=== PATIENT | male | born 1990 | race American Indian/Alaskan Native ===

== ENCOUNTER 2018-01-12 22:46 | Emergency (ER) | payer SELFPAY ==
[2018-01-12] MEDS ORDERED: ZOFRAN ODT ONE (23:18)
[2018-01-12] MEDS ORDERED: ZOFRAN ODT PO ONE (23:39)
[2018-01-12 23:46] LABS: Basophils # (Auto) 0.1 K/mm3 (0.0-0.1); Basophils % (Auto) 0.4 % (0.0-1.8); Eosinophils % (Auto) 0.2 % (0.0-4.3); Hematocrit 48.1 % (35.5-45.6); Hemoglobin 15.6 gm/dl (11.8-15.2); Lymphocytes # (Auto) 2.3 K/mm3 (1.2-5.4); Lymphocytes % (Auto) 14.5 % (13.4-35.0); Mean Corpuscular HGB Conc 32 % (32-34); Mean Corpuscular Hemoglobin 29 pg (28-32); Mean Corpuscular Volume 90 fl (84-94); Platelet Count 207 K/mm3 (140-440); Red Blood Count 5.37 M/mm3 (3.65-5.03); Red Cell Distribution Width 13.1 % (13.2-15.2)
[2018-01-13] LABS: Alanine Aminotransferase 11 units/L (7-56); BUN/Creatinine Ratio 11; Blood Urea Nitrogen 12 mg/dL (9-20); Calcium 9.5 mg/dL (8.4-10.2); Hemolysis Index 14
[2018-01-13] MEDS ORDERED: ZOFRAN ODT ONE (02:18)
[2018-01-13] MEDS ORDERED: ZOFRAN ODT PO ONE ×2 (02:44→07:14)
[2018-01-13] MEDS ORDERED: NACL 0.9% 1000 ML 1,000 ML IV ONE ×2 (03:22→07:14)
[2018-01-13] MEDS ORDERED: REGLAN IV ONE (03:22)
[2018-01-13 04:27] VITALS: BP 146/70
--- NOTE | 2018-01-13 04:33 | XRay Report ---
FINAL REPORT EXAM: XR ABDOMEN 2V HISTORY: abd pain TECHNIQUE: Two views of the abdomen were submitted. FINDINGS: The bowel gas pattern is unremarkable. Free air is not seen. There is no evidence of mass effect or suspicious calcifications. The lung bases are clear. The skeletal structures do not show any acute changes. IMPRESSION: No acute process identified
[2018-01-13 06:03] LABS: Bilirubin,Urine NEG (Negative); Blood,Urine NEG (Negative); Color,Urine Yellow (Yellow); Mucus,Urine FEW /HPF; Protein,Urine <15 mg/dL mg/dL (Negative); Urobilinogen,Urine < 2.0 mg/dL (<2.0)
--- NOTE | 2018-01-13 06:14 | Emergency Department Report ---
ED Abdominal Pain HPI - General Chief Complaint: Abdominal Pain Stated Complaint: ABD PAIN Time Seen by Provider: 01/13/18 06:12 Source: patient Mode of arrival: Ambulatory Limitations: No Limitations - History of Present Illness Initial Comments: Patient complains of a several hour history of epigastric discomfort, along with nausea and vomiting. MD Complaint: abdominal pain Severity scale (0 -10): 0 - Related Data Previous Rx's Medication Instructions Recorded Last Taken Type Dicyclomine [Bentyl] 10 mg PO QID PRN #15 capsule 01/13/18 Unknown Rx HYDROcodone/ACETAMINOPHEN [[place] 1 each PO Q4-6H PRN #12 tablet 01/13/18 Unknown Rx 5-325 Tablet] Ondansetron [Zofran ODT TAB] 8 mg PO Q8HR PRN #10 tab.rapdis 01/13/18 Unknown Rx Allergies Allergy/AdvReac Type Severity Reaction Status Date / Time No Known Allergies Allergy Verified 01/12/18 23:36 ED Review of Systems ROS: Stated complaint: ABD PAIN Other details as noted in HPI Comment: All other systems reviewed and negative Constitutional: denies: chills, diaphoresis, fever Eyes: denies: eye pain, eye discharge, vision change ENT: denies: ear pain, throat pain Respiratory: denies: cough, shortness of breath, wheezing Cardiovascular: denies: chest pain, palpitations Endocrine: no symptoms reported Gastrointestinal: abdominal pain, nausea, vomiting. denies: diarrhea, hematemesis, melena, hematochezia Genitourinary: denies: urgency, dysuria Musculoskeletal: denies: back pain, joint swelling, arthralgia Skin: denies: rash, lesions Neurological: denies: headache, weakness, paresthesias Psychiatric: denies: anxiety, depression ED Past Medical Hx - Past Medical History Previous Medical History?: No - Surgical History Past Surgical History?: Yes Additional Surgical History: tonsilectomy - Social History Smoking Status: Current Every Day Smoker Substance Use Type: Alcohol - Medications Home Medications: Home Medications Medication Instructions Recorded Confirmed Last Taken Type Dicyclomine [Bentyl] 10 mg PO QID PRN #15 capsule 01/13/18 Unknown Rx HYDROcodone/ACETAMINOPHEN [[place] 1 each PO Q4-6H PRN #12 tablet 01/13/18 Unknown Rx 5-325 Tablet] Ondansetron [Zofran ODT TAB] 8 mg PO Q8HR PRN #10 tab.rapdis 01/13/18 Unknown Rx ED Physical Exam - General Limitations: No Limitations General appearance: alert, in distress (secondary to abdominal cramping intermittently) - Head Head exam: Present: atraumatic, normocephalic - Eye Eye exam: Present: normal appearance - ENT ENT exam: Present: mucous membranes moist - Neck Neck exam: Present: normal inspection - Respiratory Respiratory exam: Present: normal lung sounds bilaterally. Absent: respiratory distress - Cardiovascular Cardiovascular Exam: Present: regular rate, normal rhythm. Absent: systolic murmur, diastolic murmur, rubs, gallop - GI/Abdominal GI/Abdominal exam: Present: soft, tenderness (primarily in the epigastrium, but lesser extent across lower abdomen, no rebound or guarding), hyperactive bowel sounds. Absent: rebound, rigid - Rectal Rectal exam: Present: deferred - Extremities Exam Extremities exam: Present: normal inspection - Back Exam Back exam: Present: normal inspection - Neurological Exam Neurological exam: Present: alert, oriented X3 - Psychiatric Psychiatric exam: Present: normal affect, normal mood - Skin Skin exam: Present: warm, dry, intact, normal color. Absent: rash ED Course Vital Signs 01/12/18 01/13/18 01/13/18 23:06 04:17 04:24 Temperature 36.4 C 36.9 C Pulse Rate 55 L 51 L Respiratory 18 16 Rate Blood Pressure 126/96 Blood Pressure 146/70 [Right] O2 Sat by Pulse 97 96 96 Oximetry 01/13/18 01/13/18 04:31 05:01 Temperature Pulse Rate Respiratory Rate Blood Pressure 146/70 146/70 Blood Pressure [Right] O2 Sat by Pulse 99 96 Oximetry - Reevaluation(s) Reevaluation #1: 01/13/18 09:17 Patient improved with rehydration as well as medication for nausea and pain. Wishes to go home, will treat symptomatically as same. ED Medical Decision Making - Lab Data Result diagrams: 01/12/18 23:38 01/12/18 23:38 - Radiology Data Radiology results: report reviewed Abdominal x-rays are unremarkable, with no findings suggestive of acute obstruction, no free air. Right upper quadrant limited abdominal ultrasound shows normal gallbladder and no other significant pathology. - Medical Decision Making Patient is generally healthy, has typical findings suggestive of an acute gastroenteritis, with epigastric component. He is improved with medication with analgesics and antiemetics, and repeat examination of his belly is essentially benign, with minimal tenderness generally to palpation, but no localization, and the right lower quadrant is in fact one of the least tender areas that is got. There is no rebound, no guarding, bowel sounds are active. White count is moderately elevated, but imaging is negative with normal right upper quadrant ultrasound and negative plain abdominal films, and patient is otherwise stable clinically, wishes to go home, and will be treated, given instructions for repeat examination if he has worsening pain, particularly if it localizes towards the right lower quadrant. - Differential Diagnosis acute gastroenteritis, gastritis, pancreatitis, appendicitis Critical Care Time: No Critical care attestation.: If time is entered above; I have spent that time in minutes in the direct care of this critically ill patient, excluding procedure time. ED Disposition Clinical Impression: Gastroenteritis, Nausea and vomiting in adult patient, Dehydration, moderate, Abdominal pain Disposition: TO HOME OR SELFCARE Is pt being admited?: No Does the pt Need Aspirin: No Condition: Stable Instructions: Acute Abdominal Pain (ED), Dehydration (ED) Additional Instructions: Rest at home, drink plenty of electrolyte rich fluids such as Pedialyte, sports drinks such as G-tube Gatorade, or soups or broths. Take Dorsey for pain Take ondansetron for nausea. Take Bentyl for abdominal cramping. No work for the next 2-3 days, Be improving within one or 2 days, but should be able to start taking solid foods after that. If abdominal pain worsens, and particularly if it moves towards the lower abdomen on the right side, return to the emergency department for repeat examination, as we would be more worried about appendicitis at that time. Prescriptions: Dicyclomine [Bentyl] 10 mg PO QID PRN #15 capsule PRN Reason: cramping HYDROcodone/ACETAMINOPHEN [[place] 5-325 Tablet] 1 each PO Q4-6H PRN #12 tablet PRN Reason: Pain Ondansetron [Zofran ODT TAB] 8 mg PO Q8HR PRN #10 tab.rapdis PRN Reason: Nausea Referrals: PRIMARY CARE, [Primary Care Provider] - 3-5 Days Forms: Work/School Release Form(ED) Time of Disposition: 09:27
--- NOTE | 2018-01-13 06:20 | Ultrasound Report ---
FINAL REPORT PROCEDURE: US ABDOMEN LIMITED TECHNIQUE: Real-time sonography in multiple planes of the gallbladder fossa and CBD with imaging of the adjacent liver, pancreas, and right kidney was performed with image documentation. CPT 62062 HISTORY: upper abd pain, N/V COMPARISON: No prior studies are available for comparison. FINDINGS: Liver: Normal size and echotexture with no evidence of cystic or solid mass lesion. Gallbladder: No discrete gallstones are seen. Gallbladder wall measures 2.2 millimeters. There is no pericholecystic fluid.. Intrahepatic bile ducts: Normal . Extrahepatic bile ducts: Normal . Pancreas: Normal as visualized with suboptimal depiction of the pancreatic tail. Right kidney: Normal echotexture. No focal renal mass, calculus, or hydronephrosis. Other: No free fluid. IMPRESSION: Normal Examination
[2018-01-13] MEDS ORDERED: MORPHINE IV ONE (07:14)
== END 2018-01-13 10:47 | disposition home or self-care (01) ==
LOC: ED 22:46
DX: K52.9 Noninfective gastroenteritis and colitis, unspecified (principal); E86.0 Dehydration; F17.200 Nicotine dependence, unspecified, uncomplicated
CPT/HCPCS: 36415; 74019; 76705; 80053; 81001; 85025; 96361; 96374; 96375; 99284; J2270; J2765; J7030; Q0162

== ENCOUNTER 2021-12-11 20:02 | Inpatient (IN) | payer OTHER ==
[2021-12-11 22:51] LABS: Hematocrit 58.9 % (35.5-45.6); Hemoglobin 19.1 gm/dl (11.8-15.2); Mean Corpuscular HGB Conc 32 % (32-34); Mean Corpuscular Volume 89 fl (84-94); Platelet Count 212 K/mm3 (140-440); Red Blood Count 6.59 M/mm3 (3.65-5.03); Red Cell Distribution Width 13.5 % (13.2-15.2)
[2021-12-11 23:06] LABS: Albumin 5.9 g/dL (3.9-5); Calcium 11.1 mg/dL (8.4-10.2)
[2021-12-11] MEDS ORDERED: MORPHINE 4 MG/1 ML INJ IV ONE (23:23)
[2021-12-11] MEDS ORDERED: ONDANSETRON 4 MG/2 ML INJ IV ONE (23:23)
[2021-12-11] MEDS ORDERED: FAMOTIDINE 20 MG/2 ML INJ IV ONE (23:23)
[2021-12-11] MEDS ORDERED: SODIUM CHLORIDE 0.9% 1000 ML 1,000 ML IV ONE (23:24)
--- NOTE | 2021-12-12 00:44 | Cat Scan Report ---
CT ABDOMEN AND PELVIS WITHOUT CONTRAST INDICATION / CLINICAL INFORMATION: ABDOMINAL PAIN, N/V. TECHNIQUE: Axial CT images were obtained through the abdomen and pelvis without IV contrast. All CT scans at this location are performed using CT dose reduction for ALARA by means of automated exposure control. COMPARISON: None available. FINDINGS: LOWER CHEST: Mild bullous disease is noted in the lung bases. AORTA / ARTERIES: No significant abnormality. IVC / VEINS: No significant abnormality. LYMPH NODES: No significant adenopathy. COLON: No significant abnormality. APPENDIX: Not visualized. STOMACH / SMALL BOWEL: No significant abnormality. PERITONEUM: No free fluid. No free air. No fluid collection. LIVER: No significant abnormality. GALLBLADDER: No significant abnormality. BILE DUCTS: No significant abnormality. PANCREAS: No significant abnormality. SPLEEN: No significant abnormality. ADRENALS: No significant abnormality. RIGHT KIDNEY / URETER: There is a 4 mm nonobstructing stone within the right kidney. LEFT KIDNEY / URETER: No significant abnormality. URINARY BLADDER: No significant abnormality. REPRODUCTIVE ORGANS: No significant abnormality. SKELETAL SYSTEM: No significant abnormality. ADDITIONAL FINDINGS: None. IMPRESSION: 1. There is a 4 mm nonobstructing stone within the right kidney. 2. Bullous disease within the lung bases. Signer Name: Dariel Ngo DO Signed: 12/12/2021 12:40 AM Workstation Name: [id number]
[2021-12-12] MEDS ORDERED: LACTATED RINGERS 1,000 ML IV ONE (00:48)
[2021-12-12 02:00] LABS: Total Cells Counted 200
[2021-12-12 02:01] LABS: Anisocytosis 1+; Basophils % (Manual) 0 % (0.0-1.8); Eosinophils % (Manual) 0 % (0.0-4.3)
[2021-12-12 02:02] LABS: Platelet Estimate Consistent w Auto
[2021-12-12] MEDS ORDERED: diphenhydrAMINE 50 MG/ML VIAL IV ONE (03:39)
[2021-12-12] MEDS ORDERED: METOCLOPRAMIDE 10 MG/2 ML INJ IV ONE (03:39)
[2021-12-12 04:03] LABS: Bilirubin,Urine NEG (Negative); Blood,Urine LG (Negative); Color,Urine Amber (Yellow); Hyaline Casts,Urine 7 /LPF; Mucus,Urine 3+ /HPF; Urobilinogen,Urine < 2.0 mg/dL (<2.0)
[2021-12-12] MEDS ORDERED: cefTRIAXone/NS 1 GM/50 ML 1 GM/50 ML BAG IV ONE (04:20)
--- NOTE | 2021-12-12 04:27 | Emergency Department Report ---
ED Abdominal Pain HPI - General Chief Complaint: Abdominal Pain Stated Complaint: NAUSEA Source: patient Mode of arrival: Ambulatory Limitations: No Limitations - History of Present Illness Initial Comments: Patient is a 31-year-old -[place] male with no past medical history presents to the ED with complaint of acute onset persistent intractable nausea and vomiting and diffuse abdominal pain for the last 2 weeks. Patient states that the pain in the abdomen is diffuse and radiates to the bilateral flanks. Patient states that he has not been able to eat or drink anything in the last 4 days because of persistent intractable nausea and vomiting. Patient denies feve r, chills, dizziness, syncope, diarrhea, chest pain or shortness of breath, hematuria, dysuria, urinary frequency and urgency, sore throat, headache, testicular pain or back pain. MD Complaint: abdominal pain (Diffuse pain), flank pain (Bilateral flanks), other (nausea and vomiting) -: Sudden, week(s) (2) Location: diffuse Radiation: none Migration to: no migration Severity: severe Severity scale (0 -10): 8 Quality: cramping, aching, sharp Consistency: constant Improves With: nothing Worsens With: eating, vomiting Context: possible food poisoning Associated Symptoms: denies other symptoms, nausea, vomiting, anorexia. denies: diarrhea, fever, chills, constipation, melena, hematuria, syncope, other - Related Data Previous Rx's Medication Instructions Recorded Last Taken Type Dicyclomine [Bentyl] 10 mg PO QID PRN #15 capsule 01/13/18 Unknown Rx HYDROcodone/ACETAMINOPHEN [[place] 1 each PO Q4-6H PRN #12 tablet 01/13/18 Unknown Rx 5-325 Tablet] Ondansetron [Zofran ODT TAB] 8 mg PO Q8HR PRN #10 tab.rapdis 01/13/18 Unknown Rx Allergies Allergy/AdvReac Type Severity Reaction Status Date / Time No Known Allergies Allergy Verified 01/12/18 23:36 ED Review of Systems ROS: Stated complaint: NAUSEA Other details as noted in HPI Constitutional: malaise, weakness. denies: chills, fever Eyes: denies: eye pain, eye discharge, vision change ENT: denies: ear pain, throat pain Respiratory: denies: cough, shortness of breath, wheezing Cardiovascular: denies: chest pain, palpitations Endocrine: no symptoms reported Gastrointestinal: abdominal pain, nausea, vomiting. denies: diarrhea Genitourinary: denies: urgency, dysuria Musculoskeletal: back pain. denies: joint swelling, arthralgia Skin: denies: rash, lesions Neurological: denies: headache, weakness, paresthesias Psychiatric: denies: anxiety, depression Hematological/Lymphatic: denies: easy bleeding, easy bruising ED Past Medical Hx - Past Medical History Previous Medical History?: No - Surgical History Past Surgical History?: Yes Additional Surgical History: tonsilectomy - Social History Smoking Status: Never Smoker Substance Use Type: Marijuana - Medications Home Medications: Home Medications Medication Instructions Recorded Confirmed Last Taken Type Dicyclomine [Bentyl] 10 mg PO QID PRN #15 capsule 01/13/18 Unknown Rx HYDROcodone/ACETAMINOPHEN [[place] 1 each PO Q4-6H PRN #12 tablet 01/13/18 Unknown Rx 5-325 Tablet] Ondansetron [Zofran ODT TAB] 8 mg PO Q8HR PRN #10 tab.rapdis 01/13/18 Unknown Rx ED Physical Exam - General Limitations: No Limitations General appearance: alert, in no apparent distress - Head Head exam: Present: atraumatic, normocephalic, normal inspection - Eye Eye exam: Present: normal appearance, PERRL, EOMI Pupils: Present: normal accommodation - ENT ENT exam: Present: normal exam, normal orophraynx, mucous membranes moist, TM's normal bilaterally, normal external ear exam - Neck Neck exam: Present: normal inspection, full ROM. Absent: tenderness, meningismus - Respiratory Respiratory exam: Present: normal lung sounds bilaterally. Absent: respiratory distress, wheezes, rales, rhonchi, chest wall tenderness, accessory muscle use, decreased breath sounds, prolonged expiratory - Cardiovascular Cardiovascular Exam: Present: normal rhythm, tachycardia, normal heart sounds. Absent: systolic murmur, diastolic murmur, rubs, gallop - GI/Abdominal GI/Abdominal exam: Present: soft, tenderness (Palpable diffuse bilateral flank abdominal tenderness), normal bowel sounds. Absent: guarding, rebound, hyperactive bowel sounds, hypoactive bowel sounds, mass, bruit - Extremities Exam Extremities exam: Present: normal inspection, full ROM, normal capillary refill. Absent: tenderness - Back Exam Back exam: Present: normal inspection, full ROM. Absent: tenderness, CVA tenderness (R), CVA tenderness (L), muscle spasm, paraspinal tenderness, vertebral tenderness, rash noted, other - Neurological Exam Neurological exam: Present: alert, oriented X3, CN II-XII intact, normal gait, reflexes normal - Psychiatric Psychiatric exam: Present: normal affect, normal mood - Skin Skin exam: Present: warm, dry, intact, normal color. Absent: rash ED Course Vital Signs 12/11/21 20:58 Temperature 98.3 F Pulse Rate 102 H Respiratory 18 Rate Blood Pressure 137/96 O2 Sat by Pulse 96 Oximetry - Reevaluation(s) Reevaluation #1: 12/12/21 05:19 I paged and discussed the patient's case with the [place] gaming cashier on-call Dr. Martinez who advised the patient be admitted and that he will be added to the consult list on the patient. ED Medical Decision Making - Lab Data Result diagrams: 12/11/21 22:25 12/11/21 22:25 - Radiology Data Radiology results: report reviewed, [place] [address] Cat Scan Report Signed Patient: MANUELA TIAN MR# : [id number] : 1990 Acct:[id number] Age/Sex: 31 / M ADM Date: 12/11/21 Loc: ED Attending Dr: Ordering Physician: EFREN KIM Date of Service: 12/11/21 Procedure(s): CT abdomen pelvis wo con Accession Number(s): [id number] cc: EFREN KIM CT ABDOMEN AND PELVIS WITHOUT CONTRAST INDICATION / CLINICAL INFORMATION: ABDOMINAL PAIN, N/V. TECHNIQUE: Axial CT images were obtained through the abdomen and pelvis without IV contrast. All CT scans at this location are performed using CT dose reduction for ALARA by means of automated exposure control. COMPARISON: None available. FINDINGS: LOWER CHEST: Mild bullous disease is noted in the lung bases. AORTA / ARTERIES: No significant abnormality. IVC / VEINS: No significant abnormality. LYMPH NODES: No significant adenopathy. COLON: No significant abnormality. APPENDIX: Not visualized. STOMACH / SMALL BOWEL: No significant abnormality. PERITONEUM: No free fluid. No free air. No fluid collection. LIVER: No significant abnormality. GALLBLADDER: No significant abnormality. BILE DUCTS: No significant abnormality. PANCREAS: No significant abnormality. SPLEEN: No significant abnormality. ADRENALS: No significant abnormality. RIGHT KIDNEY / URETER: There is a 4 mm nonobstructing stone within the right kidney. LEFT KIDNEY / URETER: No significant abnormality. URINARY BLADDER: No significant abnormality. REPRODUCTIVE ORGANS: No significant abnormality. SKELETAL SYSTEM: No significant abnormality. ADDITIONAL FINDINGS: None. IMPRESSION: 1. There is a 4 mm nonobstructing stone within the right kidney. 2. Bullous disease within the lung bases. Signer Name: Dariel Rodgers DO Signed: 12/12/2021 12:40 AM Workstation Name: [id number] Transcribed By: GLEN Dictated By: DARIEL RODGERS DO Electronically Authenticated By: DARIEL RODGERS DO Signed Date/Time: 12/12/2139 DD/ TD/TT: - Medical Decision Making This is a 31-year-old -[place] male with no past medical history presents to the ED with complaint of acute onset persistent intractable nausea and vomiting and diffuse abdominal pain for the last 2 weeks. Patient states that the pain in the abdomen is diffuse and radiates to the bilateral flanks. Patient states that he has not been able to eat or drink anything in the last 4 days because of persistent intractable nausea and vomiting. In the ED, patient is alert and oriented x3 and is not in any distress but is tachycardic but afebrile. Patient was treated for pain in the ED, also received antiemetics and normal saline 1 L IV bolus. Patient was given additional 1 L LR IV bolus x1. Lab test results were reviewed and showed BUN of 65 and creatinine of 3.0, acute leukocytosis of 22,000 and urinalysis showed urinary tract infection. Patient also received Rocephin 1 g IV x1. Abdomen pelvis CT scan without contrast showed a 4 mm nonobstructing stone within the right kidney. It also showed bull ous disease within the lung bases. On reevaluation, patient's pain is well controlled medication. Patient case was discussed with the ED attending physician Dr. Davies who agreed with the plan of care. I therefore paged and discussed the patient's case with the hospitalist physician on-call Dr. Tobias who admitted the patient to the hospital for further evaluation. Dr. Tobias advised that the gaming cashier on-call Dr. Martinez be consulted about the patient. I therefore paged and discussed the patient's case with Dr. Martinez the gaming cashier on-call who advised that the patient be admitted and he shall consult on the patient upon admission. - Differential Diagnosis Kidney stone; SBO; pancreatitis; UTI; pancreatitis; appendicitis; GERD Critical care attestation.: If time is entered above; I have spent that time in minutes in the direct care of this critically ill patient, excluding procedure time. ED Disposition Clinical Impression: Nausea and vomiting in adult patient, KELLEY (acute kidney injury), Calculus of right kidney, Acute urinary tract infection, Hypovolemia dehydration Abdominal pain Qualifiers: Abdominal location: generalized Qualified Code(s): R10.84 - Generalized abdominal pain Disposition: 01 HOME / SELF CARE / HOMELESS Is pt being admited?: Yes Does the pt Need Aspirin: No Condition: Stable Instructions: Renal Colic, [id number], Kidney Stones, [id number], Nausea and Vomiting, Adult, [id number], Abdominal Pain, Adult, [id number] Referrals: YRN BUCKNER MD [Primary Care Provider] - 3-5 Days Time of Disposition: 04:34 Print Language: URDU
[2021-12-12] MEDS ORDERED: MORPHINE 2 MG/1 ML INJ IV PRN ×2 (05:17→05:26)
[2021-12-12] MEDS ORDERED: ACETAMINOPHEN 325 MG TAB PO PRN ×2 (05:17→05:26)
[2021-12-12] MEDS ORDERED: ONDANSETRON 4 MG/2 ML INJ IV PRN ×2 (05:17→05:26)
[2021-12-12] MEDS ORDERED: ALBUTEROL 2.5 MG/3 ML NEBU IH PRN (05:26)
--- NOTE | 2021-12-12 05:33 | History and Physical Report ---
History of Present Illness Date of examination: 12/12/21 Date of admission: 12/12/21 Chief complaint: Abdominal pain Nausea vomiting History of present illness: 31-year-old -[place] male with history of tonsillectomy was brought to the emergency room because of acute onset persistent intractable nausea and vomiting and diffuse abdominal pain for the last 2 weeks. Patient states that the pain in the abdomen is diffuse and radiates to the bilateral flanks. Patient states that he has not been able to eat or drink anything in the last 4 days because of persistent intractable nausea and vomiting. Patient denies fever, chills, dizziness, syncope, diarrhea, chest pain or shortness of breath, hematuria, dysuria, urinary frequency and urgency, sore throat, headache, testicular pain or back pain In the emergency room patient is found to have WBC of 22.4, BUN of 65 creatinine 3.0, potassium 4.8, CT scan of the abdomen and pelvis showed 4 mm nonobstructing stone within the right kidney. Bullous disease within the lung bases. Also patient has a UTI so going to admit the patient and put the patient on IV fluid antibiotic and will consult nephrology for evaluation Past History Past Medical History: No medical history Past Surgical History: tonsillectomy, Other Social history: no significant social history Family history: hypertension Medications and Allergies Allergies Allergy/AdvReac Type Severity Reaction Status Date / Time No Known Allergies Allergy Verified 01/12/18 23:36 Home Medications Medication Instructions Recorded Confirmed Last Taken Type Dicyclomine [Bentyl] 10 mg PO QID PRN #15 capsule 01/13/18 Unknown Rx HYDROcodone/ACETAMINOPHEN [[place] 1 each PO Q4-6H PRN #12 tablet 01/13/18 Unknown Rx 5-325 Tablet] Ondansetron [Zofran ODT TAB] 8 mg PO Q8HR PRN #10 tab.rapdis 01/13/18 Unknown Rx Active Meds: Active Medications Acetaminophen (Acetaminophen 325 Mg Tab) 650 mg PO Q4H PRN PRN Reason: Pain MILD(1-3)/Fever >100.5/QUIROS Dextrose/Sodium Chloride (D5/0.45ns) 1,000 mls @ 150 mls/hr IV DIRECT [facility] Morphine Sulfate (Morphine 2 Mg/1 Ml Inj) 2 mg IV Q4H PRN PRN Reason: Pain, Moderate (4-6) Ondansetron HCl (Ondansetron 4 Mg/2 Ml Inj) 4 mg IV Q8H PRN PRN Reason: Nausea And Vomiting Sodium Chloride (Sodium Chloride 0.9% 10 Ml Flush Syringe) 10 ml IV BID [facility] Review of Systems All systems: negative Gastrointestinal: abdominal pain, nausea, vomiting (abdominal pain (Diffuse pain), flank pain (Bilateral flanks), other (nausea and vomiting)) Exam - Constitutional Vitals: Temp Pulse Resp BP Pulse Ox 98.3 F 102 H 18 137/96 96 12/11/21 20:58 12/11/21 20:58 12/11/21 20:58 12/11/21 20:58 12/11/21 20:58 General appearance: Present: no acute distress, well-nourished - EENT Eyes: Present: PERRL ENT: hearing intact, clear oral mucosa - Neck Neck: Present: supple, normal ROM - Respiratory Respiratory effort: normal Respiratory: bilateral: CTA - Cardiovascular Heart Sounds: Present: S1 & S2. Absent: rub, click - Extremities Extremities: pulses symmetrical, No edema Peripheral Pulses: within normal limits - Abdominal General gastrointestinal: Present: soft, non-tender, non-distended, normal bowel sounds Male genitourinary: Present: normal - Integumentary Integumentary: Present: clear, warm, dry - Musculoskeletal Musculoskeletal: gait normal, strength equal bilaterally - Psychiatric Psychiatric: appropriate mood/affect, intact judgment & insight - Neurologic Neurologic: CNII-XII intact, moves all extremities Results - Labs CBC & Chem 7: 12/11/21 22:25 12/11/21 22:25 Labs: Laboratory Last Values WBC 22.4 K/mm3 (4.5-11.0) H 12/11/21 22:25 RBC 6.59 M/mm3 (3.65-5.03) H 12/11/21 22:25 Hgb 19.1 gm/dl (11.8-15.2) H 12/11/21 22:25 Hct 58.9 % (35.5-45.6) H 12/11/21 22:25 MCV 89 fl (84-94) 12/11/21 22:25 MCH 29 pg (28-32) 12/11/21 22:25 MCHC 32 % (32-34) 12/11/21 22:25 RDW 13.5 % (13.2-15.2) 12/11/21 22:25 Plt Count 212 K/mm3 (140-440) 12/11/21 22:25 Add Manual Diff Complete 12/11/21 22: Total Counted 200 12/11/21 22:25 Seg Neuts % (Manual) 87.5 % (40.0-70.0) H 12/11/21 22:25 Band Neutrophils % 0 % 12/11/21 22:25 Lymphocytes % (Manual) 6.5 % (13.4-35.0) L 12/11/21 22:25 Reactive Lymphs % (Man) 0 % 12/11/21 22:25 Monocytes % (Manual) 6.0 % (0.0-7.3) 12/11/21: Eosinophils % (Manual) 0 % (0.0-4.3) 12/11/21 22: Basophils % (Manual) 0 % (0.0-1.8) 12/11/21 22:25 Metamyelocytes % 0 % 12/11/21 22: Myelocytes % 0 % 12/11/21 22:25 Promyelocytes % 0 % 12/11/21 22:25 Blast Cells % 0 % 12/11/21 22:25 Nucleated RBC % Not Reportable 12/11/21 22: Seg Neutrophils # Man 19.6 K/mm3 (1.8-7.7) H 12/11/21 22:25 Band Neutrophils # 0.0 K/mm3 12/11/21 22:25 Lymphocytes # (Manual) 1.5 K/mm3 (1.2-5.4) 12/11/21 22:25 Abs React Lymphs (Man) 0.0 K/mm3 12/11/21 22:25 Monocytes # (Manual) 1.3 K/mm3 (0.0-0.8) H 12/11/21 22:25 Eosinophils # (Manual) 0.0 K/mm3 (0.0-0.4) 12/11/21 22:25 Basophils # (Manual) 0.0 K/mm3 (0.0-0.1) 12/11/21 22:25 Metamyelocytes # 0.0 K/mm3 12/11/21 22:25 Myelocytes # 0.0 K/mm3 12/11/21 22:25 Promyelocytes # 0.0 K/mm3 12/11/21 22:25 Blast Cells # 0.0 K/mm3 12/11/21 22:25 WBC Morphology Not Reportable 12/11/21 22:25 Hypersegmented Neuts Not Reportable 12/11/21 22:25 Hyposegmented Neuts Not Reportable 12/11/21 22:25 Hypogranular Neuts Not Reportable 12/11/21 22:25 Smudge Cells Not Reportable 12/11/21 22:25 Toxic Granulation Not Reportable 12/11/21 22:25 Toxic Vacuolation Not Reportable 12/11/21 22:25 Dohle Bodies Not Reportable 12/11/21 22:25 Pelger-Huet Anomaly Not Reportable 12/11/21 22:25 Sohail Rods Not Reportable 12/11/21 22:25 Platelet Estimate Consistent w auto 12/11/21 22:25 Clumped Platelets Not Reportable 12/11/21 22:25 Plt Clumps, EDTA Not Reportable 12/11/21 22:25 Large Platelets Not Reportable 12/11/21 22:25 Giant Platelets Not Reportable 12/11/21 22:25 Platelet Satelliting Not Reportable 12/11/21 22:25 Plt Morphology Comment Not Reportable 12/11/21 22:25 RBC Morphology Not Reportable 12/11/21 22:25 Dimorphic RBCs Not Reportable 12/11/21 22:25 Polychromasia Not Reportable 12/11/21 22:25 Hypochromasia Not Reportable 12/11/21 22:25 Poikilocytosis Not Reportable 12/11/21 22:25 Anisocytosis 1+ 12/11/21 22:25 Microcytosis Not Reportable 12/11/21 22:25 Macrocytosis Not Reportable 12/11/21 22:25 Spherocytes Not Reportable 12/11/21 22:25 Pappenheimer Bodies Not Reportable 12/11/21 22:25 Sickle Cells Not Reportable 12/11/21 22:25 Target Cells Not Reportable 12/11/21 22:25 Tear Drop Cells Not Reportable 12/11/21 22:25 Ovalocytes Not Reportable 12/11/21 22:25 Helmet Cells Not Reportable 12/11/21 22:25 Keller-Nelsonia Bodies Not Reportable 12/11/21 22:25 [place] Rings Not Reportable 12/11/21 22:25 Cassy Cells Not Reportable 12/11/21 22:25 Bite Cells Not Reportable 12/11/21 22:25 Crenated Cell Not Reportable 12/11/21 22:25 Elliptocytes Not Reportable 12/11/21 22:25 Acanthocytes (Spur) Not Reportable 12/11/21 22:25 Rouleaux Not Reportable 12/11/21 22:25 Hemoglobin C Crystals Not Reportable 12/11/21 22:25 Schistocytes Not Reportable 12/11/21 22:25 Malaria parasites Not Reportable 12/11/21 22:25 Antonio Bodies Not Reportable 12/11/21 22:25 Hem Pathologist Commnt No 12/11/21 22:25 Sodium 146 mmol/L (137-145) H 12/11/21 22:25 Potassium 4.8 mmol/L (3.6-5.0) 12/11/21 22:25 Chloride 100.4 mmol/L (98-107) 12/11/21 22:25 Carbon Dioxide 26 mmol/L (22-30) 12/11/21 22:25 Anion Gap 24 mmol/L 12/11/21 22:25 BUN 65 mg/dL (9-20) H 12/11/21 22:25 Creatinine 3.0 mg/dL (0.8-1.3) H 12/11/21 22:25 Estimated GFR 30 ml/min 12/11/21 22:25 BUN/Creatinine Ratio 22 % 12/11/21 22:25 Glucose 161 mg/dL (75-100) H 12/11/21 22:25 Calcium 11.1 mg/dL (8.4-10.2) H 12/11/21 22:25 Total Bilirubin 1.10 mg/dL (0.1-1.2) 12/11/21 22:25 AST 20 units/L (5-40) 12/11/21 22:25 ALT 16 units/L (7-56) 12/11/21 22:25 Alkaline Phosphatase 87 units/L (35-129) 12/11/21 22:25 Total Protein 9.9 g/dL (6.3-8.2) H 12/11/21 22:25 Albumin 5.9 g/dL (3.9-5) H 12/11/21 22:25 Albumin/Globulin Ratio 1.5 % 12/11/21 22:25 Lipase 14 units/L (13-60) 12/11/21 22:25 Urine Color Ruchi (Yellow) 12/12/21 03:19 Urine Turbidity Clear (Clear) 12/12/21 03:19 Urine pH 5.0 (5.0-7.0) 12/12/21 03:19 Ur Specific [place] 1.028 (1.003-1.030) 12/12/21 03:19 Urine Protein 100 mg/dl mg/dL (Negative) 12/12/21 03:19 Urine Glucose (UA) 50 mg/dL (Negative) 12/12/21 03:19 Urine Ketones Tr mg/dL (Negative) 12/12/21 03:19 Urine Blood Lg (Negative) 12/12/21 03:19 Urine Nitrite Neg (Negative) 12/12/21 03:19 Urine Bilirubin Neg (Negative) 12/12/21 03:19 Urine Urobilinogen < 2.0 mg/dL (<2.0) 12/12/21 03:19 Ur Leukocyte Esterase Sm (Negative) 12/12/21 03:19 Urine WBC (Auto) 17.0 /HPF (0.0-6.0) H 12/12/21 03:19 Urine RBC (Auto) 64.0 /HPF (0.0-6.0) 12/12/21 03:19 U Epithel Cells (Auto) 2.0 /HPF (0-13.0) 12/12/21 03:19 Hyaline Casts 7 /LPF 12/12/21 03:19 Urine Mucus 3+ /HPF 12/12/21 03:19 Urine Yeast (Budding) Few /HPF 12/12/21 03:19 - Imaging and Cardiology CT scan - abdomen: report reviewed Assessment and Plan VTE prophylaxis?: Chemical Plan of care discussed with patient/family: Yes - Patient Problems (1) KELLEY (acute kidney injury) Current Visit: Yes Status: Acute Plan to address problem: Admit the patient to the medical floor. Avoid nephrotoxic drug. Renally dose medication. D5 half-normal saline at the rate of 150 cc/h. Rocephin 2 g IV daily. Nephrology evaluation. Recheck BMP in the morning (2) Acute urinary tract infection Current Visit: Yes Status: Acute Plan to address problem: D5 half-normal saline at the rate of 150 cc/h. Rocephin 2 g IV daily. Nephrology evaluation. Recheck BMP in the morning (3) Abdominal pain Current Visit: Yes Status: Acute Qualifiers: Abdominal location: generalized Qualified Code(s): R10.84 - Generalized abdominal pain Plan to address problem: Tylenol 650 mg p.o. every 6 hours as needed. Morphine 2 mg IV every 4 hours as needed. We continue the home medication (4) Calculus of right kidney Current Visit: Yes Status: Acute Plan to address problem: We consulted nephrology for evaluation. Consult urologist . Recheck BMP in the morning (5) Hypovolemia dehydration Current Visit: Yes Status: Acute Plan to address problem: D5 half-normal saline at the rate of 150 cc/h. Nephrology evaluation. Recheck BMP in the morning (6) Nausea and vomiting in adult patient Current Visit: Yes Status: Acute Plan to address problem: Pepcid 20 mg IV every 12 hours . Zofran 4 mg IV every 6 hours as needed. (7) DVT prophylaxis Current Visit: Yes Status: Acute Plan to address problem: Heparin 5000 units subcu every 12 hours for DVT prophylaxis. Pepcid 20 mg IV every 12 hours for GI prophylaxis. Patient is a full code
[2021-12-12] MEDS ORDERED: FAMOTIDINE 20 MG/2 ML INJ IV SCH ×2 (10:00)
[2021-12-12] MEDS: D5W/0.45% NACL 1,000 ML IV SCH ×2 (11:51→17:56)
[2021-12-12] MEDS: HEPARIN 5,000 UNIT/1 ML VIAL SUB-Q SCH ×2 (11:52→22:55)
--- NOTE | 2021-12-12 12:34 | Consultation ---
History of Present Illness - Reason for Consult Consult date: 12/12/21 acute renal failure Requesting physician: NOEMI TEJEDA - History of Present Illness This is a 31 yo M with no significant past medical history who presents to ER with acute onset of intractable nausea/vomiting along with diffuse abdominal pain, which started on the Rt flank initially, than moving to the R lower abdomen. Patient states that he has not been able to eat or drink anything in the last 4 days because of persistent intractable nausea and vomiting. Patient denies fever, chills, dizziness, syncope, diarrhea, chest pain or shortness of breath, dysuria, urinary frequency and urgency, sore throat, headache, testicular pain or back pain. However reports that his urine was dark for the last few days. Labs showed WBC of 22.4, BUN of 65 creatinine 3.0, potassium 4.8, CT scan of the abdomen and pelvis showed 4 mm nonobstructing stone within the right kidney. UA showed large blood, ++ protein, 17WBC/HPF, 64RBC/HPF. renal consult is requested for management of KELLEY. Past History Past Medical History: No medical history Past Surgical History: tonsillectomy, Other Social history: no significant social history Family history: hypertension Medications and Allergies Allergies Allergy/AdvReac Type Severity Reaction Status Date / Time No Known Allergies Allergy Verified 01/12/18 23:36 Home Medications Medication Instructions Recorded Confirmed Last Taken Type Dicyclomine [Bentyl] 10 mg PO QID PRN #15 capsule 01/13/18 12/12/21 Unknown Rx HYDROcodone/ACETAMINOPHEN [[place] 1 each PO Q4-6H PRN #12 tablet 01/13/18 12/12/21 Unknown Rx 5-325 Tablet] Ondansetron [Zofran ODT TAB] 8 mg PO Q8HR PRN #10 tab.rapdis 01/13/18 12/12/21 Unknown Rx Active Meds: Active Medications Acetaminophen (Acetaminophen 325 Mg Tab) 650 mg PO Q4H PRN PRN Reason: Pain MILD(1-3)/Fever >100.5/QUIROS Albuterol (Albuterol 2.5 Mg/3 Ml Nebu) 2.5 mg IH Q3HRT PRN PRN Reason: Shortness Of Breath Albuterol/Ipratropium (Ipratropium/Albuterol Sulfate 3 Ml Ampul.Neb) 1 ampul IH Q6HRT [facility] Famotidine (Famotidine 20 Mg/2 Ml Inj) 20 mg IV DAILY [facility] Last Admin: 12/12/21 11:52 Dose: 20 mg Heparin Sodium (Porcine) (Heparin 5,000 Unit/1 Ml Vial) 5,000 unit SUB-Q Q12HR [facility] Last Admin: 12/12/21 11:52 Dose: 5,000 unit Hydromorphone HCl (Hydromorphone 1 Mg/1 Ml Inj) 0.5 mg IV Q3H PRN PRN Reason: Pain , Severe (7-10) Dextrose/Sodium Chloride (D5/0.45ns) 1,000 mls @ 150 mls/hr IV DIRECT [facility] Last Admin: 12/12/21 11:51 Dose: 150 mls/hr Ceftriaxone Sodium (Rocephin/Ns 2 Gm/100 Ml) 2 gm in 100 mls @ 200 mls/hr IV Q24H [facility]; Protocol Stop: 12/17/21 23:59 Morphine Sulfate (Morphine 2 Mg/1 Ml Inj) 2 mg IV Q4H PRN PRN Reason: Pain, Moderate (4-6) Ondansetron HCl (Ondansetron 4 Mg/2 Ml Inj) 4 mg IV Q8H PRN PRN Reason: Nausea And Vomiting Last Admin: 12/12/21 11:52 Dose: 4 mg Sodium Chloride (Sodium Chloride 0.9% 10 Ml Flush Syringe) 10 ml IV BID [facility] Last Admin: 12/12/21 11:53 Dose: 10 ml Sodium Chloride (Sodium Chloride 0.9% 10 Ml Flush Syringe) 10 ml IV PRN PRN PRN Reason: LINE FLUSH Exam - Vital Signs Vital signs: Vital Signs Temp Pulse Resp BP Pulse Ox 98.3 F 102 H 18 137/96 96 12/11/21 20:58 12/11/21 20:58 12/11/21 20:58 12/11/21 20:58 12/11/21 20:58 Results - Lab Results 12/11/21 22:25 12/11/21 22:25 Most recent lab results Calcium 11.1 mg/dL (8.4-10.2) H 12/11/21 22:25 Assessment and Plan - Patient Problems (1) KELLEY (acute kidney injury) Current Visit: Yes Status: Acute Plan to address problem: Acute kidney injury most likely secondary to severe volume depletion in the setting of intractable nausea, vomiting. Clinical presentation, along with evidence of Rt renal calculus and significant hematuria on UA raises concern for recent stone passage leading to above symptoms. Cont aggressive IV hydration with D5 1/2NS at 150ml/hr. check urine lytes, urine protein/cr ratio. Strict I/Os. Urology was consulted for management of nephrolithiasis. Cont supportive care for KELLEY avoid NSAIDs, IV contrast, further nephrotoxins. Will monitor electrolytes/renal parameters closely and make further recommendations (2) Acute urinary tract infection Current Visit: Yes Status: Acute Plan to address problem: BCx/UCx pending, cont ABXs treatment with ceftriaxone (3) Calculus of right kidney Current Visit: Yes Status: Acute Plan to address problem: no evidence of hydronephrosis seen on CT A/P, follow urology recommendations. (4) Hypovolemia dehydration Current Visit: Yes Status: Acute Plan to address problem: cont IV D5 1/2 NS at 150mls/hr (5) Hypercalcemia Current Visit: Yes Status: Acute Plan to address problem: likely due to hemoconcentration in the setting of severe volume depletion, recheck BMP after adequate IV hydration
[2021-12-12] MEDS ORDERED: HYDROcodone/ACETAMINOPHEN 5-325 MG TAB PO PRN (13:07)
--- NOTE | 2021-12-12 13:07 | Event Note ---
Date: 12/12/21 Patient seen and examined this morning reports that he has had similar episodes in the past and at that time was most severe suspended about a month sick but did not tell me how long he was hospitalized for. He reports that he feels very anxious. He reports that his nausea vomiting is improving some. He was using Phenergan at home. We will continue to monitor labs. We will add p.o. Xanax for anxiety. Plan discussed with the patient family at bedside and with the nursing staff. Home medication history obtained and reconciled
[2021-12-12] MEDS ORDERED: ALPRAZolam 0.25 MG TAB PO PRN (13:08)
[2021-12-12 13:44] LABS: Creatinine,Urine 185.9 mg/dL (0.1-20.0)
[2021-12-12] MEDS: IPRATROPIUM/ALBUTEROL SULFATE 3 ML AMPUL.NEB IH SCH ×3 (13:54→21:05)
[2021-12-12] MEDS ORDERED: DICYCLOMINE 10 MG CAP PO PRN (14:00)
[2021-12-12] MEDS: ONDANSETRON 4 MG/2 ML INJ IV PRN ×2 (17:46→20:22)
[2021-12-12] MEDS: cefTRIAXone/NS 2 GM/100 ML 2 GM/100 ML BAG IV SCH (22:54)
[2021-12-13] MEDS: IPRATROPIUM/ALBUTEROL SULFATE 3 ML AMPUL.NEB IH SCH (02:55)
[2021-12-13] MEDS: ONDANSETRON 4 MG/2 ML INJ IV PRN ×3 (03:46→23:27)
[2021-12-13] MEDS: HYDROmorphone 1 MG/1 ML INJ IV PRN ×2 (03:46→11:18)
[2021-12-13 05:19] LABS: Basophils % (Auto) 0.4 % (0.0-1.8); Hematocrit 49.3 % (35.5-45.6); Hemoglobin 16.4 gm/dl (11.8-15.2); Lymphocytes # (Auto) 1.1 K/mm3 (1.2-5.4); Lymphocytes % (Auto) 8.9 % (13.4-35.0); Mean Corpuscular HGB Conc 33 % (32-34); Mean Corpuscular Volume 90 fl (84-94); Monocytes % (Auto) 7.9 % (0.0-7.3); Platelet Count 173 K/mm3 (140-440); Red Blood Count 5.49 M/mm3 (3.65-5.03)
[2021-12-13 05:38] LABS: Alanine Aminotransferase 33 units/L (7-56); Albumin 4.9 g/dL (3.9-5); BUN/Creatinine Ratio 18; Blood Urea Nitrogen 21 mg/dL (9-20); Calcium 9.4 mg/dL (8.4-10.2); Hemolysis Index 8
[2021-12-13] MEDS: D5W/0.45% NACL 1,000 ML IV SCH ×2 (06:14→15:05)
[2021-12-13] MEDS ORDERED: IPRATROPIUM/ALBUTEROL SULFATE 3 ML AMPUL.NEB IH SCH (08:00)
[2021-12-13] MEDS: HEPARIN 5,000 UNIT/1 ML VIAL SUB-Q SCH ×2 (09:37→23:23)
[2021-12-13] MEDS: FAMOTIDINE 20 MG TAB PO SCH ×2 (09:38→20:14)
[2021-12-13] MEDS: HALOPERIDOL 2 MG TAB PO SCH ×2 (11:18→23:22)
[2021-12-13] MEDS: METOCLOPRAMIDE 10 MG/2 ML INJ IV SCH ×2 (11:18→17:01)
--- NOTE | 2021-12-13 11:37 | Gastroenterology Consultation ---
History of Present Illness - Reason for Consult Consult date: 12/13/21 N/V Requesting physician: KAYLEY DASILVA - History of Present Illness This ss a pleasant 31-year-old gentleman GI consult for acute nausea vomiting and abdominal pain for the last 2 weeks He reports the pain is mid abdomen and upper abdomen, diffuse, associate with nausea vomiting and weight loss, constant, severe. Mild improvement with hot showers worse with nothing Patient does use marijuana routinely He reports prior to 2 weeks ago no GI complaints no chronic GI issues no chronic weight loss issues no chronic loss of appetite etc. CT demonstrates 4 mm nonobstructing stone within the right kidney, UA demonstrates hematuria Obtained/updated/reviewed patient's current medications Past History Past Medical History: No medical history Past Surgical History: tonsillectomy, Other Social history: no significant social history Family history: hypertension Medications and Allergies Allergies Allergy/AdvReac Type Severity Reaction Status Date / Time No Known Allergies Allergy Verified 01/12/18 23:36 Home Medications Medication Instructions Recorded Confirmed Last Taken Type Dicyclomine [Bentyl] 10 mg PO QID PRN #15 capsule 01/13/18 12/12/21 Unknown Rx HYDROcodone/ACETAMINOPHEN [[place] 1 each PO Q4-6H PRN #12 tablet 01/13/18 12/12/21 Unknown Rx 5-325 Tablet] Ondansetron [Zofran ODT TAB] 8 mg PO Q8HR PRN #10 tab.rapdis 01/13/18 12/12/21 Unknown Rx Active Meds: Active Medications Acetaminophen (Acetaminophen 325 Mg Tab) 650 mg PO Q4H PRN PRN Reason: Pain MILD(1-3)/Fever >100.5/QUIROS Hydrocodone Bitart/Acetaminophen (Hydrocodone/Acetaminophen 5-325 Mg Tab) 1 each PO Q4H PRN PRN Reason: Pain, Moderate (4-6) Albuterol (Albuterol 2.5 Mg/3 Ml Nebu) 2.5 mg IH Q3HRT PRN PRN Reason: Shortness Of Breath Alprazolam (Alprazolam 0.25 Mg Tab) 0.25 mg PO Q8H PRN PRN Reason: Anxiety Last Admin: 12/12/21 20:21 Dose: 0.25 mg Dicyclomine HCl (Dicyclomine 10 Mg Cap) 10 mg PO QID PRN PRN Reason: ABD cramping Famotidine (Famotidine 20 Mg Tab) 20 mg PO [facility] Last Admin: 12/13/21 09:38 Dose: 20 mg Haloperidol (Haloperidol 2 Mg Tab) 2 mg PO BID [facility] Last Admin: 12/13/21 11:18 Dose: 2 mg Heparin Sodium (Porcine) (Heparin 5,000 Unit/1 Ml Vial) 5,000 unit SUB-Q Q12HR [facility] Last Admin: 12/13/21 09:37 Dose: 5,000 unit Hydromorphone HCl (Hydromorphone 1 Mg/1 Ml Inj) 0.5 mg IV Q3H PRN PRN Reason: Pain , Severe (7-10) Last Admin: 12/13/21 11:18 Dose: 0.5 mg Dextrose/Sodium Chloride (D5/0.45ns) 1,000 mls @ 150 mls/hr IV DIRECT [facility] Last Admin: 12/13/21 06:14 Dose: 150 mls/hr Ceftriaxone Sodium (Rocephin/Ns 2 Gm/100 Ml) 2 gm in 100 mls @ 200 mls/hr IV Q24H [facility]; Protocol Stop: 12/18/21 23:59 Last Admin: 12/12/21 22:54 Dose: 200 mls/hr Metoclopramide HCl (Metoclopramide 10 Mg/2 Ml Inj) 5 mg IV Q6HR [facility] Last Admin: 12/13/21 11:18 Dose: 5 mg Ondansetron HCl (Ondansetron 4 Mg/2 Ml Inj) 4 mg IV Q4H PRN PRN Reason: Nausea And Vomiting Last Admin: 12/13/21 09:37 Dose: 4 mg Sodium Chloride (Sodium Chloride 0.9% 10 Ml Flush Syringe) 10 ml IV BID [facility] Last Admin: 12/13/21 09:38 Dose: 10 ml Sodium Chloride (Sodium Chloride 0.9% 10 Ml Flush Syringe) 10 ml IV PRN PRN PRN Reason: LINE FLUSH Review of Systems - Review of Systems All systems: negative (10 Systems reviewed and negative except as mentioned above in the history of present illness) Exam - Constitutional Vital Signs: Temp Pulse Resp BP Pulse Ox 97.9 F 78 16 113/70 100 12/13/21 05:07 12/13/21 05:07 12/13/21 05:07 12/13/21 05:07 12/13/21 10:37 General appearance: other (thin) - EENT Eyes: EOM intact ENT: hearing intact - Neck Neck: supple - Respiratory Respiratory effort: normal - Cardiovascular Rhythm: regular - Gastrointestinal General gastrointestinal: Present: soft, tender, normal bowel sounds - Integumentary Integumentary: Present: dry - Musculoskeletal Musculoskeletal: normal - Neurologic Neurological: alert and oriented x3 - Psychiatric Psychiatric: appropriate mood/affect - Labs CBC & Chem 7: 12/13/21 04:22 12/13/21 04:22 Lab Results: Laboratory Results - last 24 hr 12/12/21 12/13/21 12/13/21 13:30 04:22 04:22 WBC 12.0 H RBC 5.49 H Hgb 16.4 H Hct 49.3 H D MCV 90 MCH 30 MCHC 33 RDW 13.0 L Plt Count 173 Lymph % (Auto) 8.9 L Hart % (Auto) 7.9 H Eos % (Auto) 0.0 Baso % (Auto) 0.4 Lymph # (Auto) 1.1 L Hart # (Auto) 1.0 H Eos # (Auto) 0.0 Baso # (Auto) 0.0 Seg Neutrophils % 82.8 H Seg Neutrophils # 10.0 H Sodium 149 H Potassium 4.0 Chloride 108.2 H Carbon Dioxide 26 Anion Gap 19 BUN 21 H Creatinine 1.2 D Estimated GFR > 60 BUN/Creatinine Ratio 18 Glucose 176 H Calcium 9.4 D Total Bilirubin 1.30 H AST 36 ALT 33 Alkaline Phosphatase 72 Total Protein 7.9 D Albumin 4.9 Albumin/Globulin Ratio 1.6 Urine Creatinine 185.9 H Urine Sodium 61 Urine Total Protein 23 H Assessment and Plan Patient with symptoms less than 4 weeks duration therefore acute etiologies such as infectious gastroenteritis highest on the differential diagnosis Also on the differential diagnosis is marijuana induced cyclic vomiting syndrome, peptic ulcer disease, etc. Given symptoms the non obstructing kidney stone is unlikely to be the etiology of his symptoms Recommend supportive care, provided patient education about marijuana cessation, will continue to follow with you. If Patient is not rapidly improving with supportive care he may require inpatient endoscopic evaluation - Patient Problems (1) Abdominal pain Current Visit: Yes Status: Acute Qualifiers: Abdominal location: generalized Qualified Code(s): R10.84 - Generalized abdominal pain (2) Nausea and vomiting in adult patient Current Visit: Yes Status: Acute
--- NOTE | 2021-12-13 13:23 | Progress Note ---
Assessment and Plan Assessment and plan: 31-year-old -[place] male with history of tonsillectomy was brought to the emergency room because of acute onset persistent intractable nausea and vomiting and diffuse abdominal pain for the last 2 weeks. Patient states that the pain in the abdomen is diffuse and radiates to the bilateral flanks. Patient states that he has not been able to eat or drink anything in the last 4 days because of persistent intractable nausea and vomiting. Patient denies fever, chills, dizziness, syncope, diarrhea, chest pain or shortness of breath, hematuria, dysuria, urinary frequency and urgency, sore throat, headache, testicular pain or back pain In the emergency room patient is found to have WBC of 22.4, BUN of 65 creatinine 3.0, potassium 4.8, CT scan of the abdomen and pelvis showed 4 mm nonobstructing stone within the right kidney. Bullous disease within the lung bases. Also patient has a UTI so going to admit the patient and put the patient on IV fluid antibiotic and will consult nephrology for evaluation 12/13: Patient is a chronic THC user and continues with persistent nausea and vomiting without cough. Patient also continues with Diffuse abdominal discomfort. He is quite cachectic family member who is with him at bedside reports that they are concerned about COVID due to his weakness in his lower extremities while I explained all this they did lose a family member secondary to COVID and had the same presentation will proceed with a rapid COVID test for him. He is on antibiotics for acute cystitis. Renal function is improving. He likely may have passed a renal stone but at this point would have expected that his symptoms would improve but considering that they continue will obtain a GI evaluation this may be a cannabis hyperemesis syndrome. We will start him on Haldol scheduled and also Reglan. Counseling provided for 15 minutes of need to quit THC he verbalized understanding. He is unvaccinated) to get vaccinated. We will change fluids to D5 half NS in light of hypernatremia (1) KELLEY (acute kidney injury) Current Visit: Yes Status: Acute Plan to address problem: Admit the patient to the medical floor. Avoid nephrotoxic drug. Renally dose medication. D5 half-normal saline at the rate of 150 cc/h. Rocephin 2 g IV daily. Nephrology evaluation. Recheck BMP in the morning (2) Acute urinary tract infection Current Visit: Yes Status: Acute Plan to address problem: D5 half-normal saline at the rate of 150 cc/h. Rocephin 2 g IV daily. Nephrology evaluation. Recheck BMP in the morning (3) Abdominal pain Current Visit: Yes Status: Acute Qualifiers: Abdominal location: generalized Qualified Code(s): R10.84 - Generalized abdominal pain Plan to address problem: Tylenol 650 mg p.o. every 6 hours as needed. Morphine 2 mg IV every 4 hours as needed. We continue the home medication (4) Calculus of right kidney Current Visit: Yes Status: Acute Plan to address problem: We consulted nephrology for evaluation. Consult urologist . Recheck BMP in the morning (5) Hypovolemia dehydration Current Visit: Yes Status: Acute Plan to address problem: D5 half-normal saline at the rate of 150 cc/h. Nephrology evaluation. Recheck BMP in the morning (6) Nausea and vomiting in adult patient Current Visit: Yes Status: Acute Plan to address problem: Pepcid 20 mg IV every 12 hours . Zofran 4 mg IV every 6 hours as needed. (7) hyponatremia (8) DVT prophylaxis Current Visit: Yes Status: Acute Plan to address problem: Heparin 5000 units subcu every 12 hours for DVT prophylaxis. Pepcid 20 mg IV every 12 hours for GI prophylaxis. Patient is a full code Patient seen and examined this morning reports that he has had similar episodes in the past and at that time was most severe suspended about a month sick but did not tell me how long he was hospitalized for. He reports that he feels very anxious. He reports that his nausea vomiting is improving some. He was using Phenergan at home. We will continue to monitor labs. We will add p.o. Xanax for anxiety. Plan discussed with the patient family at bedside and with the nursing staff. Home medication history obtained and reconciled History Interval history: Patient seen and examined, resting but still in pain, states that he feels better with warm bath, he is unable to tell me why he is on Bently, believes it was from last year. Hospitalist Physical - Physical exam Narrative exam: VITAL SIGNS: Reviewed. GENERAL: The patient appears normally developed, chachetic, chronically ill appearing, uncomfortable Vital signs as documented. HEAD: No signs of head trauma. EYES: Pupils are equal. Extraocular motions intact. EARS: Hearing grossly intact. MOUTH: Oropharynx is normal. NECK: No adenopathy, no JVD. CHEST: Chest with clear breath sounds bilaterally. No wheezes, rales, or rhonchi. CARDIAC: Regular rate and rhythm. S1 and S2, without murmurs, gallops, or rubs. VASCULAR: No Edema. Peripheral pulses normal and equal in all extremities. ABDOMEN: Soft, non tender and non distended. No rebound or guarding, and no masses palpated. Bowel Sounds normal. MUSCULOSKELETAL: Good range of motion of all major joints. Extremities without clubbing, cyanosis or edema. NEUROLOGIC EXAM: Alert and oriented x 3 No focal sensory or strength deficits. Speech normal. Follows commands. PSYCHIATRIC: Mood normal. SKIN: detail exam as documented in skin assessment - Constitutional Vitals: Temp Pulse Resp BP Pulse Ox 97.9 F 78 16 113/70 100 12/13/21 05:07 12/13/21 05:07 12/13/21 05:07 12/13/21 05:07 12/13/21 10:37 General appearance: Present: no acute distress, well-nourished Results - Labs CBC & Chem 7: 12/13/21 04:22 12/13/21 04:22 Labs: Laboratory Last Values WBC 12.0 K/mm3 (4.5-11.0) H 12/13/21 04:22 RBC 5.49 M/mm3 (3.65-5.03) H 12/13/21 04:22 Hgb 16.4 gm/dl (11.8-15.2) H 12/13/21 04:22 Hct 49.3 % (35.5-45.6) H D 12/13/21 04:22 MCV 90 fl (84-94) 12/13/21 04:22 MCH 30 pg (28-32) 12/13/21 04:22 MCHC 33 % (32-34) 12/13/21 04:22 RDW 13.0 % (13.2-15.2) L 12/13/21 04:22 Plt Count 173 K/mm3 (140-440) 12/13/21 04:22 Lymph % (Auto) 8.9 % (13.4-35.0) L 12/13/21 04:22 [place] % (Auto) 7.9 % (0.0-7.3) H 12/13/21 04:22 Eos % (Auto) 0.0 % (0.0-4.3) 12/13/21 04:22 Baso % (Auto) 0.4 % (0.0-1.8) 12/13/21 04:22 Lymph # (Auto) 1.1 K/mm3 (1.2-5.4) L 12/13/21 04:22 [place] # (Auto) 1.0 K/mm3 (0.0-0.8) H 12/13/21 04:22 Eos # (Auto) 0.0 K/mm3 (0.0-0.4) 12/13/21 04:22 Baso # (Auto) 0.0 K/mm3 (0.0-0.1) 12/13/21 04: Add Manual Diff Complete 12/11/21 22:25 Total Counted 200 12/11/21 22:25 Seg Neutrophils % 82.8 % (40.0-70.0) H 12/13/21 04: Seg Neuts % (Manual) 87.5 % (40.0-70.0) H 12/11/21 22:25 Band Neutrophils % 0 % 12/11/21 22:25 Lymphocytes % (Manual) 6.5 % (13.4-35.0) L 12/11/21 22:25 Reactive Lymphs % (Man) 0 % 12/11/21 22:25 Monocytes % (Manual) 6.0 % (0.0-7.3) 12/11/21 22:25 Eosinophils % (Manual) 0 % (0.0-4.3) 12/11/21 22:25 Basophils % (Manual) 0 % (0.0-1.8) 12/11/21 22:25 Metamyelocytes % 0 % 12/11/21 22:25 Myelocytes % 0 % 12/11/21 22:25 Promyelocytes % 0 % 12/11/21 22:25 Blast Cells % 0 % 12/11/21 22:25 Nucleated RBC % Not Reportable 12/11/21 22:25 Seg Neutrophils # 10.0 K/mm3 (1.8-7.7) H 12/13/21 04:22 Seg Neutrophils # Man 19.6 K/mm3 (1.8-7.7) H 12/11/21 22:25 Band Neutrophils # 0.0 K/mm3 12/11/21 22:25 Lymphocytes # (Manual) 1.5 K/mm3 (1.2-5.4) 12/11/21 22:25 Abs React Lymphs (Man) 0.0 K/mm3 12/11/21 22:25 Monocytes # (Manual) 1.3 K/mm3 (0.0-0.8) H 12/11/21 22:25 Eosinophils # (Manual) 0.0 K/mm3 (0.0-0.4) 12/11/21 22:25 Basophils # (Manual) 0.0 K/mm3 (0.0-0.1) 12/11/21 22:25 Metamyelocytes # 0.0 K/mm3 12/11/21 22:25 Myelocytes # 0.0 K/mm3 12/11/21 22:25 Promyelocytes # 0.0 K/mm3 12/11/21 22:25 Blast Cells # 0.0 K/mm3 12/11/21 22:25 WBC Morphology Not Reportable 12/11/21 22:25 Hypersegmented Neuts Not Reportable 12/11/21 22:25 Hyposegmented Neuts Not Reportable 12/11/21 22:25 Hypogranular Neuts Not Reportable 12/11/21 22:25 Smudge Cells Not Reportable 12/11/21 22:25 Toxic Granulation Not Reportable 12/11/21 22:25 Toxic Vacuolation Not Reportable 12/11/21 22:25 Dohle Bodies Not Reportable 12/11/21 22:25 Pelger-Huet Anomaly Not Reportable 12/11/21 22:25 Sohail Rods Not Reportable 12/11/21 22:25 Platelet Estimate Consistent w auto 12/11/21 22:25 Clumped Platelets Not Reportable 12/11/21 22:25 Plt Clumps, EDTA Not Reportable 12/11/21 22:25 Large Platelets Not Reportable 12/11/21 22:25 Giant Platelets Not Reportable 12/11/21 22:25 Platelet Satelliting Not Reportable 12/11/21 22:25 Plt Morphology Comment Not Reportable 12/11/21 22:25 RBC Morphology Not Reportable 12/11/21 22:25 Dimorphic RBCs Not Reportable 12/11/21 22:25 Polychromasia Not Reportable 12/11/21 22:25 Hypochromasia Not Reportable 12/11/21 22:25 Poikilocytosis Not Reportable 12/11/21 22:25 Anisocytosis 1+ 12/11/21 22:25 Microcytosis Not Reportable 12/11/21 22:25 Macrocytosis Not Reportable 12/11/21 22:25 Spherocytes Not Reportable 12/11/21 22:25 Pappenheimer Bodies Not Reportable 12/11/21 22:25 Sickle Cells Not Reportable 12/11/21 22:25 Target Cells Not Reportable 12/11/21 22:25 Tear Drop Cells Not Reportable 12/11/21 22:25 Ovalocytes Not Reportable 12/11/21 22:25 Helmet Cells Not Reportable 12/11/21 22:25 Keller-Ilion Bodies Not Reportable 12/11/21 22:25 [place] Rings Not Reportable 12/11/21 22:25 Cassy Cells Not Reportable 12/11/21 22:25 Bite Cells Not Reportable 12/11/21 22:25 Crenated Cell Not Reportable 12/11/21 22:25 Elliptocytes Not Reportable 12/11/21 22:25 Acanthocytes (Spur) Not Reportable 12/11/21 22:25 Rouleaux Not Reportable 12/11/21 22:25 Hemoglobin C Crystals Not Reportable 12/11/21 22:25 Schistocytes Not Reportable 12/11/21 22:25 Malaria parasites Not Reportable 12/11/21 22:25 Antonio Bodies Not Reportable 12/11/21 22:25 Hem Pathologist Commnt No 12/11/21 22:25 Sodium 149 mmol/L (137-145) H 12/13/21 04:22 Potassium 4.0 mmol/L (3.6-5.0) 12/13/21 04:22 Chloride 108.2 mmol/L (98-107) H 12/13/21 04:22 Carbon Dioxide 26 mmol/L (22-30) 12/13/21 04:22 Anion Gap 19 mmol/L 12/13/21 04:22 BUN 21 mg/dL (9-20) H 12/13/21 04:22 Creatinine 1.2 mg/dL (0.8-1.3) D 12/13/21 04:22 Estimated GFR > 60 ml/min 12/13/21 04:22 BUN/Creatinine Ratio 18 % 12/13/21 04:22 Glucose 176 mg/dL (75-100) H 12/13/21 04:22 Calcium 9.4 mg/dL (8.4-10.2) D 12/13/21 04:22 Total Bilirubin 1.30 mg/dL (0.1-1.2) H 12/13/21 04:22 AST 36 units/L (5-40) 12/13/21 04:22 ALT 33 units/L (7-56) 12/13/21 04:22 Alkaline Phosphatase 72 units/L (35-129) 12/13/21 04:22 Total Protein 7.9 g/dL (6.3-8.2) D 12/13/21 04:22 Albumin 4.9 g/dL (3.9-5) 12/13/21 04:22 Albumin/Globulin Ratio 1.6 % 12/13/21 04:22 Lipase 14 units/L (13-60) 12/11/21 22:25 Urine Color Ruchi (Yellow) 12/12/21 03:19 Urine Turbidity Clear (Clear) 12/12/21 03:19 Urine pH 5.0 (5.0-7.0) 12/12/21 03:19 Ur Specific [place] 1.028 (1.003-1.030) 12/12/21 03:19 Urine Protein 100 mg/dl mg/dL (Negative) 12/12/21 03:19 Urine Glucose (UA) 50 mg/dL (Negative) 12/12/21 03:19 Urine Ketones Tr mg/dL (Negative) 12/12/21 03:19 Urine Blood Lg (Negative) 12/12/21 03:19 Urine Nitrite Neg (Negative) 12/12/21 03:19 Urine Bilirubin Neg (Negative) 12/12/21 03:19 Urine Urobilinogen < 2.0 mg/dL (<2.0) 12/12/21 03:19 Ur Leukocyte Esterase Sm (Negative) 12/12/21 03:19 Urine WBC (Auto) 17.0 /HPF (0.0-6.0) H 12/12/21 03:19 Urine RBC (Auto) 64.0 /HPF (0.0-6.0) 12/12/21 03:19 U Epithel Cells (Auto) 2.0 /HPF (0-13.0) 12/12/21 03:19 Hyaline Casts 7 /LPF 12/12/21 03:19 Urine Mucus 3+ /HPF 12/12/21 03:19 Urine Yeast (Budding) Few /HPF 12/12/21 03:19 Urine Creatinine 185.9 mg/dL (0.1-20.0) H 12/12/21 13:30 Urine Sodium 61 mmol/L 12/12/21 13:30 Urine Total Protein 23 mg/dL (5-11.8) H 12/12/21 13:30 Whyte/IV: Voiding Method Toilet Active Medications - Current Medications Current Medications: Generic Name Dose Route Start Last Admin Trade Name Freq PRN Reason Stop Dose Admin Acetaminophen 650 mg 12/12/21 05:26 Acetaminophen 325 Mg Tab PO Q4H PRN Pain MILD(1-3)/Fever >100.5/QUIROS Hydrocodone Bitart/Acetaminophen 1 each 12/12/21 13:07 Hydrocodone/Acetaminophen 5-325 Mg Tab PO Q4H PRN Pain, Moderate (4-6) Albuterol 2.5 mg 12/12/21 05:26 Albuterol 2.5 Mg/3 Ml Nebu IH Q3HRT PRN Shortness Of Breath Alprazolam 0.25 mg 12/12/21 13:08 12/12/21 20:21 Alprazolam 0.25 Mg Tab PO 0.25 mg Q8H PRN Administration Anxiety Dicyclomine HCl 10 mg 12/12/21 14:00 Dicyclomine 10 Mg Cap PO QID PRN ABD cramping Famotidine 20 mg 12/13/21 08:30 12/13/21 09:38 Famotidine 20 Mg Tab PO 20 mg 0800,1999 ASHLEY Administration Haloperidol 2 mg 12/13/21 11:00 12/13/21 11:18 Haloperidol 2 Mg Tab PO 2 mg BID ASHLEY Administration Heparin Sodium (Porcine) 5,000 unit 12/12/21 10:00 12/13/21 09:37 Heparin 5,000 Unit/1 Ml Vial SUB-Q 5,000 unit Q12HR ASHLEY Administration Hydromorphone HCl 0.5 mg 12/12/21 05:26 12/13/21 11:18 Hydromorphone 1 Mg/1 Ml Inj IV 0.5 mg Q3H PRN Administration Pain , Severe (7-10) Dextrose/Sodium Chloride 1,000 mls @ 150 mls/hr 12/12/21 06:00 12/13/21 06:14 D5/0.45ns IV 150 mls/hr DIRECT ASHLEY Administration Ceftriaxone Sodium 2 gm in 100 mls @ 200 mls/hr 12/12/21 22:00 12/12/21 22:54 Rocephin/Ns 2 Gm/100 Ml IV 12/18/21 23:59 200 mls/hr Q24H ASHLEY Administration Protocol Metoclopramide HCl 5 mg 12/13/21 11:00 12/13/21 11:18 Metoclopramide 10 Mg/2 Ml Inj IV 5 mg Q6HR ASHLEY Administration Ondansetron HCl 4 mg 12/12/21 17:19 12/13/21 09:37 Ondansetron 4 Mg/2 Ml Inj IV 4 mg Q4H PRN Administration Nausea And Vomiting Sodium Chloride 10 ml 12/12/21 10:00 12/13/21 09:38 Sodium Chloride 0.9% 10 Ml Flush Syringe IV 10 ml BID ASHLEY Administration Sodium Chloride 10 ml 12/12/21 05:26 Sodium Chloride 0.9% 10 Ml Flush Syringe IV PRN PRN LINE FLUSH
--- NOTE | 2021-12-13 16:03 | Progress Note ---
Assessment and Plan - Patient Problems (1) KELLEY (acute kidney injury) Current Visit: Yes Status: Acute Plan to address problem: Renal function has shown improvement over the last 24 hours with aggressive IVF hydration and control of nausea/vomiting. Continue on current regimen and avoid all nephrotoxins. (2) Abdominal pain Current Visit: Yes Status: Acute Qualifiers: Abdominal location: generalized Qualified Code(s): R10.84 - Generalized abdominal pain Plan to address problem: Resolved at this time. Continue to monitor. (3) Acute urinary tract infection Current Visit: Yes Status: Acute Plan to address problem: Continue current antibiotic regimen. (4) Calculus of right kidney Current Visit: Yes Status: Acute Plan to address problem: Non obstructive kidney stone with no indications of obstruction or consequent hydronephrosis. (5) Hypercalcemia Current Visit: Yes Status: Acute Plan to address problem: serum calcium showing improvement with appropriate hydration. Subjective Date of service: 12/13/21 Interval history: No acute complaints. Renal function improved. Appetite slowly improving. Objective - Vital Signs Vital signs: Vital Signs - 12hr 12/13/21 12/13/21 12/13/21 05:07 07:24 10:35 Temperature 97.9 F Pulse Rate 78 Respiratory 16 Rate Blood Pressure 113/70 O2 Sat by Pulse 96 100 100 Oximetry 12/13/21 12/13/21 10:37 11:49 Temperature 98.8 F Pulse Rate 55 L Respiratory 18 Rate Blood Pressure 143/77 O2 Sat by Pulse 100 95 Oximetry - General Appearance General appearance: well-developed, appears stated age EENT: ATNC, PERRL Neck: no JVD, no thyromegaly Respiratory: Present: Clear to Ascultation Cardiology: regular Gastrointestinal: normal Integumentary: no rash, warm and dry Neurologic: no focal deficit, alert and oriented x3 Musculoskeletal: deferred Psychiatric: cooperative - Lab 12/13/21 04:22 12/13/21 04:22 Most recent lab results Calcium 9.4 mg/dL (8.4-10.2) D 12/13/21 04:22 Urine Creatinine 185.9 mg/dL (0.1-20.0) H 12/12/21 13:30 Urine Sodium 61 mmol/L 12/12/21 13:30 Urine Total Protein 23 mg/dL (5-11.8) H 12/12/21 13:30 - Imaging Chest x-ray: pending - Allied health notes Allied health notes reviewed: nursing Medications & Allergies - Medications Allergies/Adverse Reactions: Allergies No Known Allergies Allergy (Verified 01/12/18 23:36) Home Medications: Home Medications Medication Instructions Recorded Confirmed Last Taken Type Dicyclomine [Bentyl] 10 mg PO QID PRN #15 capsule 01/13/18 12/12/21 Unknown Rx HYDROcodone/ACETAMINOPHEN [Corinne 1 each PO Q4-6H PRN #12 tablet 01/13/18 12/12/21 Unknown Rx 5-325 Tablet] Ondansetron [Zofran ODT TAB] 8 mg PO Q8HR PRN #10 tab.rapdis 01/13/18 12/12/21 Unknown Rx Active Medications: Generic Name Dose Route Start Last Admin Trade Name Freq PRN Reason Stop Dose Admin Acetaminophen 650 mg 12/12/21 05:26 Acetaminophen 325 Mg Tab PO Q4H PRN Pain MILD(1-3)/Fever >100.5/QUIROS Hydrocodone Bitart/Acetaminophen 1 each 12/12/21 13:07 Hydrocodone/Acetaminophen 5-325 Mg Tab PO Q4H PRN Pain, Moderate (4-6) Albuterol 2.5 mg 12/12/21 05:26 Albuterol 2.5 Mg/3 Ml Nebu IH Q3HRT PRN Shortness Of Breath Alprazolam 0.25 mg 12/12/21 13:08 12/12/21 20:21 Alprazolam 0.25 Mg Tab PO 0.25 mg Q8H PRN Administration Anxiety Dicyclomine HCl 10 mg 12/12/21 14:00 Dicyclomine 10 Mg Cap PO QID PRN ABD cramping Famotidine 20 mg 12/13/21 08:30 12/13/21 09:38 Famotidine 20 Mg Tab PO 20 mg 0800,1999 ASHLEY Administration Haloperidol 2 mg 12/13/21 11:00 12/13/21 11:18 Haloperidol 2 Mg Tab PO 2 mg BID ASHLEY Administration Heparin Sodium (Porcine) 5,000 unit 12/12/21 10:00 12/13/21 09:37 Heparin 5,000 Unit/1 Ml Vial SUB-Q 5,000 unit Q12HR ASHLEY Administration Hydromorphone HCl 0.5 mg 12/12/21 05:26 12/13/21 11:18 Hydromorphone 1 Mg/1 Ml Inj IV 0.5 mg Q3H PRN Administration Pain , Severe (7-10) Dextrose/Sodium Chloride 1,000 mls @ 150 mls/hr 12/12/21 06:00 12/13/21 15:05 D5/0.45ns IV 150 mls/hr DIRECT ASHLEY Administration Ceftriaxone Sodium 2 gm in 100 mls @ 200 mls/hr 12/12/21 22:00 12/12/21 22:54 Rocephin/Ns 2 Gm/100 Ml IV 12/18/21 23:59 200 mls/hr Q24H ASHLEY Administration Protocol Metoclopramide HCl 5 mg 12/13/21 11:00 12/13/21 11:18 Metoclopramide 10 Mg/2 Ml Inj IV 5 mg Q6HR ASHLEY Administration Ondansetron HCl 4 mg 12/12/21 17:19 12/13/21 09:37 Ondansetron 4 Mg/2 Ml Inj IV 4 mg Q4H PRN Administration Nausea And Vomiting Sodium Chloride 10 ml 12/12/21 10:00 12/13/21 09:38 Sodium Chloride 0.9% 10 Ml Flush Syringe IV 10 ml BID ASHLEY Administration Sodium Chloride 10 ml 12/12/21 05:26 Sodium Chloride 0.9% 10 Ml Flush Syringe IV PRN PRN LINE FLUSH
[2021-12-13] MEDS: cefTRIAXone/NS 2 GM/100 ML 2 GM/100 ML BAG IV SCH (23:23)
[2021-12-14] MEDS: METOCLOPRAMIDE 10 MG/2 ML INJ IV SCH ×5 (01:00→23:16)
[2021-12-14] MEDS: D5W/0.45% NACL 1,000 ML IV SCH (01:48)
--- NOTE | 2021-12-14 08:59 | Gastroenterology Progress Note ---
Assessment and Plan Patient gradually improving and symptoms less than 4 weeks duration therefore acute etiologies such as infectious gastroenteritis followed by marijuana induced hyperemesis or CVS are highest on the differential diagnosis Continue supportive care, advance diet as tolerated, and if patient continues to improve this rapidly can be discharged this afternoon or tomorrow He should avoid all marijuana products out of an abundance of caution - Patient Problems (1) Abdominal pain Current Visit: Yes Status: Acute Qualifiers: Abdominal location: generalized Qualified Code(s): R10.84 - Generalized abdominal pain (2) Nausea and vomiting in adult patient Current Visit: Yes Status: Acute Subjective Date of service: 12/14/21 Principal diagnosis: N/V Interval history: Patient reports still with nausea and some vomiting. He reports the abdominal pain is moderately improved He took a hot bath last night and was about to go to hot bath this morning he reports that is helping with the nausea which is intermittent Objective - Constitutional Vitals: Temp Pulse Resp BP Pulse Ox 97.8 F 63 20 120/77 98 12/14/21 06:53 12/14/21 06:53 12/14/21 06:53 12/14/21 06:53 12/14/21 08:02 General appearance: other (thin, NAD) - EENT Eyes: EOM intact - Neck Neck: supple - Respiratory Respiratory effort: normal - Gastrointestinal General gastrointestinal: Present: soft, normal bowel sounds - Musculoskeletal Musculoskeletal: normal - Neurologic Neurological: alert and oriented x3 - Psychiatric Psychiatric: appropriate mood/affect - Labs CBC & Chem 7: 12/13/21 04:22 12/13/21 04:22 Labs: Laboratory Results - last 24 hr 12/13/21 17:14 D-Dimer < 135.00
[2021-12-14] MEDS: FAMOTIDINE 20 MG TAB PO SCH ×2 (09:17→21:57)
[2021-12-14] MEDS: HEPARIN 5,000 UNIT/1 ML VIAL SUB-Q SCH ×2 (09:17→21:57)
[2021-12-14] MEDS: HALOPERIDOL 2 MG TAB PO SCH ×2 (09:17→21:57)
--- NOTE | 2021-12-14 10:55 | Progress Note ---
Assessment and Plan Assessment and plan: 31-year-old -[place] male with history of tonsillectomy was brought to the emergency room because of acute onset persistent intractable nausea and vomiting and diffuse abdominal pain for the last 2 weeks. Patient states that the pain in the abdomen is diffuse and radiates to the bilateral flanks. Patient states that he has not been able to eat or drink anything in the last 4 days because of persistent intractable nausea and vomiting. Patient denies fever, chills, dizziness, syncope, diarrhea, chest pain or shortness of breath, hematuria, dysuria, urinary frequency and urgency, sore throat, headache, testicular pain or back pain In the emergency room patient is found to have WBC of 22.4, BUN of 65 creatinine 3.0, potassium 4.8, CT scan of the abdomen and pelvis showed 4 mm nonobstructing stone within the right kidney. Bullous disease within the lung bases. Also patient has a UTI so going to admit the patient and put the patient on IV fluid antibiotic and will consult nephrology for evaluation Acute kidney UTI Abdominal pain Vasomotor nephropathy/dehydration Intractable nausea and vomit Hyponatremia 12/13: Patient is a chronic THC user and continues with persistent nausea and vomiting without cough. Patient also continues with Diffuse abdominal discomfort. He is quite cachectic family member who is with him at bedside reports that they are concerned about COVID due to his weakness in his lower extremities while I explained all this they did lose a family member secondary to COVID and had the same presentation will proceed with a rapid COVID test for him. He is on antibiotics for acute cystitis. Renal function is improving. He likely may have passed a renal stone but at this point would have expected that his symptoms would improve but considering that they continue will obtain a GI evaluation this may be a cannabis hyperemesis syndrome. We will start him on Haldol scheduled and also Reglan. Counseling provided for 15 minutes of need to quit THC he verbalized understanding. He is unvaccinated) to get vaccinated. We will change fluids to D5 half NS in light of hypernatremia 12/14: Patient appears to have improvement of symptoms. GI reports patient's symptoms are less than 4 weeks duration therefore acute etiologies such as infectious gastroenteritis followed by marijuana induced hyperemesis or CVS are highest on the differential diagnosis. Continue supportive care and advance diet as tolerated. Anticipate discharge in a.m. History Interval history: No new issues overnight Hospitalist Physical - Constitutional Vitals: Temp Pulse Resp BP Pulse Ox 97.8 F 63 20 120/77 98 12/14/21 06:53 12/14/21 06:53 12/14/21 06:53 12/14/21 06:53 12/14/21 08:02 General appearance: Present: no acute distress, well-nourished - EENT Eyes: Present: PERRL, EOM intact ENT: hearing intact, clear oral mucosa, dentition normal - Neck Neck: Present: supple, normal ROM - Respiratory Respiratory effort: normal Respiratory: bilateral: CTA - Cardiovascular Rhythm: regular Heart Sounds: Present: S1 & S2. Absent: gallop, rub - Extremities Extremities: no ischemia, No edema, Full ROM - Abdominal General gastrointestinal: soft, non-tender, non-distended, normal bowel sounds - Integumentary Integumentary: Present: clear, warm, dry - Neurologic Neurologic: CNII-XII intact, moves all extremities Results - Labs CBC & Chem 7: 12/13/21 04:22 12/13/21 04:22 Labs: Laboratory Last Values WBC 12.0 K/mm3 (4.5-11.0) H 12/13/21 04:22 RBC 5.49 M/mm3 (3.65-5.03) H 12/13/21 04:22 Hgb 16.4 gm/dl (11.8-15.2) H 12/13/21 04:22 Hct 49.3 % (35.5-45.6) H D 12/13/21 04:22 MCV 90 fl (84-94) 12/13/21 04:22 MCH 30 pg (28-32) 12/13/21 04:22 MCHC 33 % (32-34) 12/13/21 04:22 RDW 13.0 % (13.2-15.2) L 12/13/21 04:22 Plt Count 173 K/mm3 (140-440) 12/13/21 04:22 Lymph % (Auto) 8.9 % (13.4-35.0) L 12/13/21 04:22 [place] % (Auto) 7.9 % (0.0-7.3) H 12/13/21 04:22 Eos % (Auto) 0.0 % (0.0-4.3) 12/13/21 04:22 Baso % (Auto) 0.4 % (0.0-1.8) 12/13/21 04:22 Lymph # (Auto) 1.1 K/mm3 (1.2-5.4) L 12/13/21 04:22 [place] # (Auto) 1.0 K/mm3 (0.0-0.8) H 12/13/21 04:22 Eos # (Auto) 0.0 K/mm3 (0.0-0.4) 12/13/21 04:22 Baso # (Auto) 0.0 K/mm3 (0.0-0.1) 12/13/21 04:22 Add Manual Diff Complete 12/11/21 22:25 Total Counted 200 12/11/21 22:25 Seg Neutrophils % 82.8 % (40.0-70.0) H 12/13/21 04:22 Seg Neuts % (Manual) 87.5 % (40.0-70.0) H 12/11/21 22:25 Band Neutrophils % 0 % 12/11/21 22:25 Lymphocytes % (Manual) 6.5 % (13.4-35.0) L 12/11/21 22:25 Reactive Lymphs % (Man) 0 % 12/11/21 22:25 Monocytes % (Manual) 6.0 % (0.0-7.3) 12/11/21 22:25 Eosinophils % (Manual) 0 % (0.0-4.3) 12/11/21 22:25 Basophils % (Manual) 0 % (0.0-1.8) 12/11/21 22:25 Metamyelocytes % 0 % 12/11/21 22:25 Myelocytes % 0 % 12/11/21 22:25 Promyelocytes % 0 % 12/11/21 22:25 Blast Cells % 0 % 12/11/21 22:25 Nucleated RBC % Not Reportable 12/11/21 22:25 Seg Neutrophils # 10.0 K/mm3 (1.8-7.7) H 12/13/21 04:22 Seg Neutrophils # Man 19.6 K/mm3 (1.8-7.7) H 12/11/21 22:25 Band Neutrophils # 0.0 K/mm3 12/11/21 22:25 Lymphocytes # (Manual) 1.5 K/mm3 (1.2-5.4) 12/11/21 22:25 Abs React Lymphs (Man) 0.0 K/mm3 12/11/21 22:25 Monocytes # (Manual) 1.3 K/mm3 (0.0-0.8) H 12/11/21 22:25 Eosinophils # (Manual) 0.0 K/mm3 (0.0-0.4) 12/11/21 22:25 Basophils # (Manual) 0.0 K/mm3 (0.0-0.1) 12/11/21 22:25 Metamyelocytes # 0.0 K/mm3 12/11/21 22:25 Myelocytes # 0.0 K/mm3 12/11/21 22:25 Promyelocytes # 0.0 K/mm3 12/11/21 22:25 Blast Cells # 0.0 K/mm3 12/11/21 22:25 WBC Morphology Not Reportable 12/11/21 22:25 Hypersegmented Neuts Not Reportable 12/11/21 22:25 Hyposegmented Neuts Not Reportable 12/11/21 22:25 Hypogranular Neuts Not Reportable 12/11/21 22:25 Smudge Cells Not Reportable 12/11/21 22:25 Toxic Granulation Not Reportable 12/11/21 22:25 Toxic Vacuolation Not Reportable 12/11/21 22:25 Dohle Bodies Not Reportable 12/11/21 22:25 Pelger-Huet Anomaly Not Reportable 12/11/21 22:25 Sohail Rods Not Reportable 12/11/21 22:25 Platelet Estimate Consistent w auto 12/11/21 22:25 Clumped Platelets Not Reportable 12/11/21 22:25 Plt Clumps, EDTA Not Reportable 12/11/21 22:25 Large Platelets Not Reportable 12/11/21 22:25 Giant Platelets Not Reportable 12/11/21 22:25 Platelet Satelliting Not Reportable 12/11/21 22:25 Plt Morphology Comment Not Reportable 12/11/21 22:25 RBC Morphology Not Reportable 12/11/21 22:25 Dimorphic RBCs Not Reportable 12/11/21 22:25 Polychromasia Not Reportable 12/11/21 22:25 Hypochromasia Not Reportable 12/11/21 22:25 Poikilocytosis Not Reportable 12/11/21 22:25 Anisocytosis 1+ 12/11/21 22:25 Microcytosis Not Reportable 12/11/21 22:25 Macrocytosis Not Reportable 12/11/21 22:25 Spherocytes Not Reportable 12/11/21 22:25 Pappenheimer Bodies Not Reportable 12/11/21 22:25 Sickle Cells Not Reportable 12/11/21 22:25 Target Cells Not Reportable 12/11/21 22:25 Tear Drop Cells Not Reportable 12/11/21 22:25 Ovalocytes Not Reportable 12/11/21 22:25 Helmet Cells Not Reportable 12/11/21 22:25 [place] Bodies Not Reportable 12/11/21 22:25 [place] Rings Not Reportable 12/11/21 22:25 [place] Cells Not Reportable 12/11/21 22:25 Bite Cells Not Reportable 12/11/21 22:25 Crenated Cell Not Reportable 12/11/21 22:25 Elliptocytes Not Reportable 12/11/21 22:25 Acanthocytes (Spur) Not Reportable 12/11/21 22:25 Rouleaux Not Reportable 12/11/21 22:25 Hemoglobin C Crystals Not Reportable 12/11/21 22:25 Schistocytes Not Reportable 12/11/21 22:25 Malaria parasites Not Reportable 12/11/21 22:25 [place] Bodies Not Reportable 12/11/21 22:25 Hem Pathologist Commnt No 12/11/21 22:25 D-Dimer < 135.00 ng/mlDDU (0-234) 12/13/21 17:14 Sodium 149 mmol/L (137-145) H 12/13/21 04:22 Potassium 4.0 mmol/L (3.6-5.0) 12/13/21 04:22 Chloride 108.2 mmol/L (98-107) H 12/13/21 04:22 Carbon Dioxide 26 mmol/L (22-30) 12/13/21 04:22 Anion Gap 19 mmol/L 12/13/21 04:22 BUN 21 mg/dL (9-20) H 12/13/21 04:22 Creatinine 1.2 mg/dL (0.8-1.3) D 12/13/21 04:22 Estimated GFR > 60 ml/min 12/13/21 04:22 BUN/Creatinine Ratio 18 % 12/13/21 04:22 Glucose 176 mg/dL (75-100) H 12/13/21 04:22 Calcium 9.4 mg/dL (8.4-10.2) D 12/13/21 04:22 Total Bilirubin 1.30 mg/dL (0.1-1.2) H 12/13/21 04:22 AST 36 units/L (5-40) 12/13/21 04:22 ALT 33 units/L (7-56) 12/13/21 04:22 Alkaline Phosphatase 72 units/L (35-129) 12/13/21 04:22 Total Protein 7.9 g/dL (6.3-8.2) D 12/13/21 04:22 Albumin 4.9 g/dL (3.9-5) 12/13/21 04:22 Albumin/Globulin Ratio 1.6 % 12/13/21 04:22 Lipase 14 units/L (13-60) 12/11/21 22:25 Urine Color Ruchi (Yellow) 12/12/21 03:19 Urine Turbidity Clear (Clear) 12/12/21 03:19 Urine pH 5.0 (5.0-7.0) 12/12/21 03:19 Ur Specific [place] 1.028 (1.003-1.030) 12/12/21 03:19 Urine Protein 100 mg/dl mg/dL (Negative) 12/12/21 03:19 Urine Glucose (UA) 50 mg/dL (Negative) 12/12/21 03:19 Urine Ketones Tr mg/dL (Negative) 12/12/21 03:19 Urine Blood Lg (Negative) 12/12/21 03:19 Urine Nitrite Neg (Negative) 12/12/21 03:19 Urine Bilirubin Neg (Negative) 12/12/21 03:19 Urine Urobilinogen < 2.0 mg/dL (<2.0) 12/12/21 03:19 Ur Leukocyte Esterase Sm (Negative) 12/12/21 03:19 Urine WBC (Auto) 17.0 /HPF (0.0-6.0) H 12/12/21 03:19 Urine RBC (Auto) 64.0 /HPF (0.0-6.0) 12/12/21 03:19 U Epithel Cells (Auto) 2.0 /HPF (0-13.0) 12/12/21 03:19 Hyaline Casts 7 /LPF 12/12/21 03:19 Urine Mucus 3+ /HPF 12/12/21 03:19 Urine Yeast (Budding) Few /HPF 12/12/21 03:19 Urine Creatinine 185.9 mg/dL (0.1-20.0) H 12/12/21 13:30 Urine Sodium 61 mmol/L 12/12/21 13:30 Urine Total Protein 23 mg/dL (5-11.8) H 12/12/21 13:30 [place]/IV: Voiding Method Toilet Active Medications - Current Medications Current Medications: Generic Name Dose Route Start Last Admin Trade Name Freq PRN Reason Stop Dose Admin Acetaminophen 650 mg 12/12/21 05:26 Acetaminophen 325 Mg Tab PO Q4H PRN Pain MILD(1-3)/Fever >100.5/QUIROS Hydrocodone Bitart/Acetaminophen 1 each 12/12/21 13:07 Hydrocodone/Acetaminophen 5-325 Mg Tab PO Q4H PRN Pain, Moderate (4-6) Albuterol 2.5 mg 12/12/21 05:26 Albuterol 2.5 Mg/3 Ml Nebu IH Q3HRT PRN Shortness Of Breath Alprazolam 0.25 mg 12/12/21 13:08 12/12/21 20:21 Alprazolam 0.25 Mg Tab PO 0.25 mg Q8H PRN Administration Anxiety Dicyclomine HCl 10 mg 12/12/21 14:00 Dicyclomine 10 Mg Cap PO QID PRN ABD cramping Famotidine 20 mg 12/13/21 08:30 12/14/21 09:17 Famotidine 20 Mg Tab PO 20 mg 0800,2000 ASHLEY Administration Haloperidol 2 mg 12/13/21 11:00 12/14/21 09:17 Haloperidol 2 Mg Tab PO 2 mg BID ASHLEY Administration Heparin Sodium (Porcine) 5,000 unit 12/12/21 10:00 12/14/21 09:17 Heparin 5,000 Unit/1 Ml Vial SUB-Q 5,000 unit Q12HR ASHLEY Administration Hydromorphone HCl 0.5 mg 12/12/21 05:26 12/13/21 11:18 Hydromorphone 1 Mg/1 Ml Inj IV 0.5 mg Q3H PRN Administration Pain , Severe (7-10) Dextrose/Sodium Chloride 1,000 mls @ 150 mls/hr 12/12/21 06:00 12/14/21 01:48 D5/0.45ns IV 150 mls/hr DIRECT ASHLEY Administration Ceftriaxone Sodium 2 gm in 100 mls @ 200 mls/hr 12/12/21 22:00 12/13/21 23:23 Rocephin/Ns 2 Gm/100 Ml IV 12/18/21 23:59 200 mls/hr Q24H ASHLEY Administration Protocol Metoclopramide HCl 5 mg 12/13/21 11:00 12/14/21 06:31 Metoclopramide 10 Mg/2 Ml Inj IV 5 mg Q6HR ASHLEY Administration Ondansetron HCl 4 mg 12/12/21 17:19 12/13/21 23:27 Ondansetron 4 Mg/2 Ml Inj IV 4 mg Q4H PRN Administration Nausea And Vomiting Sodium Chloride 10 ml 12/12/21 10:00 12/13/21 23:23 Sodium Chloride 0.9% 10 Ml Flush Syringe IV 10 ml BID ASHLEY Administration Sodium Chloride 10 ml 12/12/21 05:26 Sodium Chloride 0.9% 10 Ml Flush Syringe IV PRN PRN LINE FLUSH Nutrition/Malnutrition Assess - Dietary Evaluation Nutrition/Malnutrition Findings: Nutrition Notes Start: 12/13/21 1 4:14 Freq: Status: Active Protocol: Document 12/13/21 14:14 [place] (Rec: 12/13/21 14:25 [place] [id number]) Nutrition Notes Need for Assessment generated from: Low BMI Initial or Follow up Assessment Current Diagnosis Acute Kidney Injury Other Pertinent Diagnosis UTI, Abdominal Pain/N/V, Nephrolithiasis, Dehydration, Cystitis, COVID pui. Current Diet Cardiac Diet (since B 12/12). Labs/Tests 12/13: Na 149, Cl 108.2, BUN 21, Glu 176. Pertinent Medications 12/13: Nutritionally unremarkable. 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 Weight Status Underweight Subjective/Other Information RD consult for Low BMI assessment. No reports available on Pt's PO intake at the time, will assess at F/U. Pt is on Room Air, O2 saturation @ 100%, according to Physical Assessment History notes. Pt's Low BMI seems to correspond to a natural body composition, and not related to a sudden loss of body weight nor chronic malnutrition, since none were mentioned in the Physical Assessment History or the Progress notes. Percent of energy/protein needs met: Prescribed Cardiac Diet provides for energy/protein needs (2,230 Kcal/85 g) during LOS. Burn Absent Trauma Absent GI Symptoms Nausea,Vomiting,Other Food Allergy No Skin Integrity/Comment Assessment WNL. Minimum of two criteria No #1 Nutrition Diagnosis No nutrition diagnosis at this time Comments: Will assess Pt's PO intake of meals at F/U. Is patient on ventilator? No Is Patient Ambulatory and/or Out of Bed Yes REE-([place]-St. Jeor-ambulatory/OOB) [ 2010.100 [id number]] Kcal/Kg value to use for calculation 40 Approximate Energy Requirements Using 2176 kcal/Kg Calculation Used for Recommendations Kcal/kg Additional Notes Protein: 0.8-1.2 g/Kg IBW; 65- 97 g/day. Fluids: 1 ml/Kcal, or as per MD. Nutrition Intervention Change Diet Order: Continue Cardiac Diet. Follow-Up By: 12/20/21 Additional Comments Continue monitoring food tolerance, %PO intake of meals , and BM.
[2021-12-14 11:47] LABS: Hematocrit 49.3 % (35.5-45.6); Hemoglobin 16.6 gm/dl (11.8-15.2); Mean Corpuscular HGB Conc 34 % (32-34); Mean Corpuscular Volume 89 fl (84-94); Platelet Count 177 K/mm3 (140-440); Red Blood Count 5.54 M/mm3 (3.65-5.03); Red Cell Distribution Width 12.7 % (13.2-15.2)
[2021-12-14 12:11] LABS: Alanine Aminotransferase 34 units/L (7-56); Albumin 4.8 g/dL (3.9-5); BUN/Creatinine Ratio 13; Blood Urea Nitrogen 14 mg/dL (9-20); Calcium 10.1 mg/dL (8.4-10.2); Hemolysis Index 23
--- NOTE | 2021-12-14 16:44 | Progress Note ---
Assessment and Plan - Patient Problems (1) KELLEY (acute kidney injury) Current Visit: Yes Status: Acute Plan to address problem: Renal function has shown continued improvement at this time. Will continue to monitor closely. From nephrology standpoint patient is stable for discharge. (2) Abdominal pain Current Visit: Yes Status: Acute Qualifiers: Abdominal location: generalized Qualified Code(s): R10.84 - Generalized abdominal pain Plan to address problem: Resolved at this time. Continue to monitor. (3) Acute urinary tract infection Current Visit: Yes Status: Acute Plan to address problem: Continue current antibiotic regimen. (4) Calculus of right kidney Current Visit: Yes Status: Acute Plan to address problem: Non obstructive kidney stone with no indications of obstruction or consequent hydronephrosis. (5) Hypercalcemia Current Visit: Yes Status: Acute Plan to address problem: serum calcium showing improvement with appropriate hydration. Subjective Date of service: 12/14/21 Principal diagnosis: N/V Interval history: No acute issues this morning. Patient's nausea and vomiting are continuing to improve. Appetite is also slowly improving. Renal function is stable at this time. Objective - Vital Signs Vital signs: Vital Signs - 12hr 12/14/21 12/14/21 12/14/21 06:53 08:02 15:49 Temperature 97.8 F Pulse Rate 63 Respiratory 20 Rate Blood Pressure 120/77 O2 Sat by Pulse 96 98 99 Oximetry - General Appearance General appearance: well-developed, appears stated age EENT: ATNC Neck: no JVD Respiratory: Present: Clear to Ascultation Cardiology: regular Gastrointestinal: normal Integumentary: warm and dry Neurologic: no focal deficit Musculoskeletal: deferred Psychiatric: cooperative - Lab 12/14/21 11:22 12/14/21 11:22 Most recent lab results Calcium 10.1 mg/dL (8.4-10.2) 12/14/21 11:22 Urine Creatinine 185.9 mg/dL (0.1-20.0) H 12/12/21 13:30 Urine Sodium 61 mmol/L 12/12/21 13:30 Urine Total Protein 23 mg/dL (5-11.8) H 12/12/21 13:30 - Allied health notes Allied health notes reviewed: nursing Medications & Allergies - Medications Allergies/Adverse Reactions: Allergies No Known Allergies Allergy (Verified 01/12/18 23:36) Home Medications: Home Medications Medication Instructions Recorded Confirmed Last Taken Type Dicyclomine [Bentyl] 10 mg PO QID PRN #15 capsule 01/13/18 12/12/21 Unknown Rx HYDROcodone/ACETAMINOPHEN [[place] 1 each PO Q4-6H PRN #12 tablet 01/13/18 12/12/21 Unknown Rx 5-325 Tablet] Ondansetron [Zofran ODT TAB] 8 mg PO Q8HR PRN #10 tab.rapdis 01/13/18 12/12/21 Unknown Rx Active Medications: Generic Name Dose Route Start Last Admin Trade Name Freq PRN Reason Stop Dose Admin Acetaminophen 650 mg 12/12/21 05:26 Acetaminophen 325 Mg Tab PO Q4H PRN Pain MILD(1-3)/Fever >100.5/QUIROS Hydrocodone Bitart/Acetaminophen 1 each 12/12/21 13:07 Hydrocodone/Acetaminophen 5-325 Mg Tab PO Q4H PRN Pain, Moderate (4-6) Albuterol 2.5 mg 12/12/21 05:26 Albuterol 2.5 Mg/3 Ml Nebu IH Q3HRT PRN Shortness Of Breath Alprazolam 0.25 mg 12/12/21 13:08 12/12/21 20:21 Alprazolam 0.25 Mg Tab PO 0.25 mg Q8H PRN Administration Anxiety Dicyclomine HCl 10 mg 12/12/21 14:00 Dicyclomine 10 Mg Cap PO QID PRN ABD cramping Famotidine 20 mg 12/13/21 08:30 12/14/21 09:17 Famotidine 20 Mg Tab PO 20 mg 08,1999 ASHLEY Administration Haloperidol 2 mg 12/13/21 11:00 12/14/21 09:17 Haloperidol 2 Mg Tab PO 2 mg BID ASHLEY Administration Heparin Sodium (Porcine) 5,000 unit 12/12/21 10:00 12/14/21 09:17 Heparin 5,000 Unit/1 Ml Vial SUB-Q 5,000 unit Q12HR ASHLEY Administration Hydromorphone HCl 0.5 mg 12/12/21 05:26 12/13/21 11:18 Hydromorphone 1 Mg/1 Ml Inj IV 0.5 mg Q3H PRN Administration Pain , Severe (7-10) Dextrose/Sodium Chloride 1,000 mls @ 150 mls/hr 12/12/21 06:00 12/14/21 01:48 D5/0.45ns IV 150 mls/hr DIRECT ASHLEY Administration Ceftriaxone Sodium 2 gm in 100 mls @ 200 mls/hr 12/12/21 22:00 12/13/21 23:23 Rocephin/Ns 2 Gm/100 Ml IV 12/18/21 23:59 200 mls/hr Q24H ASHLEY Administration Protocol Metoclopramide HCl 5 mg 12/13/21 11:00 12/14/21 12:28 Metoclopramide 10 Mg/2 Ml Inj IV 5 mg Q6HR ASHLEY Administration Ondansetron HCl 4 mg 12/12/21 17:19 12/13/21 23:27 Ondansetron 4 Mg/2 Ml Inj IV 4 mg Q4H PRN Administration Nausea And Vomiting Sodium Chloride 10 ml 12/12/21 10:00 12/14/21 12:28 Sodium Chloride 0.9% 10 Ml Flush Syringe IV 10 ml BID ASHLEY Administration Sodium Chloride 10 ml 12/12/21 05:26 Sodium Chloride 0.9% 10 Ml Flush Syringe IV PRN PRN LINE FLUSH
[2021-12-14] MEDS: cefTRIAXone/NS 2 GM/100 ML 2 GM/100 ML BAG IV SCH (21:57)
[2021-12-15] MEDS: D5W/0.45% NACL 1,000 ML IV SCH (02:26)
[2021-12-15] MEDS: METOCLOPRAMIDE 10 MG/2 ML INJ IV SCH (05:31)
--- NOTE | 2021-12-15 08:42 | Gastroenterology Progress Note ---
Assessment and Plan Patient has continued to improve and is feeling much better From GI perspective patient can be discharged though he should follow-up with us if his symptoms return Regarding differential diagnosis, acute etiologies such as infectious gas troenteritis followed by marijuana induced hyperemesis or CVS are highest on the differential diagnosis He should avoid all marijuana products out of an abundance of caution - Patient Problems (1) Abdominal pain Current Visit: Yes Status: Acute Qualifiers: Abdominal location: generalized Qualified Code(s): R10.84 - Generalized abdominal pain (2) Nausea and vomiting in adult patient Current Visit: Yes Status: Acute Subjective Date of service: 12/15/21 Principal diagnosis: N/V Interval history: Patient reports symptoms improving significantly, just mild residual nausea overall much better Objective - Constitutional Vitals: Temp Pulse Resp BP Pulse Ox 98.2 F 101 H 18 140/88 96 12/15/21 04:39 12/15/21 04:39 12/15/21 04:39 12/15/21 04:39 12/15/21 04:39 General appearance: no acute distress - EENT Eyes: EOM intact ENT: hearing intact - Respiratory Respiratory effort: normal - Gastrointestinal General gastrointestinal: Present: soft, non-tender - Musculoskeletal Musculoskeletal: normal - Neurologic Neurological: alert and oriented x3 - Psychiatric Psychiatric: appropriate mood/affect - Labs CBC & Chem 7: 12/14/21 11:22 12/14/21 11:22 Labs: Laboratory Results - last 24 hr 12/14/21 12/14/21 12/14/21 10:30 11:22 11:22 WBC 10.1 RBC 5.54 H Hgb 16.6 H Hct 49.3 H MCV 89 MCH 30 MCHC 34 RDW 12.7 L Plt Count 177 Sodium 144 Potassium 3.5 L Chloride 102.3 Carbon Dioxide 29 Anion Gap 16 BUN 14 Creatinine 1.1 Estimated GFR > 60 BUN/Creatinine Ratio 13 Glucose 138 H Calcium 10.1 Total Bilirubin 1.30 H AST 24 ALT 34 Alkaline Phosphatase 67 Total Protein 7.9 Albumin 4.8 Albumin/Globulin Ratio 1.5 SARS-CoV-2 (PCR) Negative
--- NOTE | 2021-12-15 09:17 | Discharge Summary ---
Providers - Providers Date of Admission: 12/12/21 06:53 Date of discharge: 12/15/21 Attending physician: BEAR SKY 12/12/21 05:16 Consult to Physician [CONS] Stat Comment: Consulting Provider: KALIN SCOTT Physician Instructions: To consult upon admission Reason For Exam: Acute kidney injury; dehydration 12/12/21 05:35 Consult to Physician [CONS] Routine Comment: Consulting Provider: MARVIN SIMMONS Physician Instructions: Reason For Exam: Kidney stone 12/13/21 10:06 Consult to Physician [CONS] Routine Comment: Consulting Provider: NIKOLAI MURCIA Physician Instructions: Reason For Exam: intractable nausea and vomiting Primary care physician: YRN BUCKNER Hospitalization Reason for admission: Intractable nausea and vomiting Condition: Stable Hospital course: 31-year-old -[place] male with history of tonsillectomy was brought to the emergency room because of acute onset persistent intractable nausea and vomiting and diffuse abdominal pain for the last 2 weeks. Patient states that the pain in the abdomen is diffuse and radiates to the bilateral flanks. Patie nt states that he has not been able to eat or drink anything in the last 4 days because of persistent intractable nausea and vomiting. Patient denies fever, chills, dizziness, syncope, diarrhea, chest pain or shortness of breath, hematuria, dysuria, urinary frequency and urgency, sore throat, headache, testicular pain or back pain In the emergency room patient is found to have WBC of 22.4, BUN of 65 creatinine 3.0, potassium 4.8, CT scan of the abdomen and pelvis showed 4 mm nonobstructing stone within the right kidney. Bullous disease within the lung bases. Also patient has a UTI so going to admit the patient and put the patient on IV fluid antibiotic and nephrology was consulted. Patient was admitted with diagnosis below: Acute kidney UTI Abdominal pain Vasomotor nephropathy/dehydration Intractable nausea and vomit Hyponatremia 12/13: Patient is a chronic THC user and continues with persistent nausea and vomiting without cough. Patient also continues with Diffuse abdominal disc omfort. He is quite cachectic family member who is with him at bedside reports that they are concerned about COVID due to his weakness in his lower extremities while I explained all this they did lose a family member secondary to COVID and had the same presentation will proceed with a rapid COVID test for him. He is on antibiotics for acute cystitis. Renal function is improving. He likely may have passed a renal stone but at this point would have expected that his symptoms would improve but considering that they continue will obtain a GI evaluation this may be a cannabis hyperemesis syndrome. We will start him on Haldol scheduled and also Reglan. Counseling provided for 15 minutes of need to quit THC he verbalized understanding. He is unvaccinated) to get vaccinated. We will change fluids to D5 half NS in light of hypernatremia 12/14: Patient appears to have improvement of symptoms. GI reports patient's symptoms are less than 4 weeks duration therefore acute etiologies such as infectious gastroenteritis followed by marijuana induced hyperemesis or CVS are highest on the differential diagnosis. Continue supportive care and advance diet as tolerated. Anticipate discharge in a.m. 12/15: Patient continues to improve and is back to baseline. GI reported differential diagnosis and acute etiologies ranged from possible infectious gastroenteritis followed by marijuana induced hyperemesis or CVS are highest on the differential diagnosis He should avoid all marijuana products out of an abundance of caution. Dedicated discharge time 35 minutes. Disposition: 30 STILL A PATIENT Final Discharge Diagnosis (Prints w/discharge instructions): Acute kidney. UTI. Abdominal pain. Vasomotor nephropathy/dehydration. Intractable nausea and vomit. Hyponatremia. Infectious gastroenteritis. Marijuana induced hyperemesis Core Measure Documentation - Palliative Care Palliative Care/ Comfort Measures: Not Applicable - Core Measures Any of the following diagnoses?: none Exam - Constitutional Vitals: Temp Pulse Resp BP Pulse Ox 98.2 F 101 H 18 140/88 96 12/15/21 04:39 12/15/21 04:39 12/15/21 04:39 12/15/21 04:39 12/15/21 04:39 General appearance: Present: no acute distress, well-nourished - EENT Eyes: Present: PERRL ENT: hearing intact, clear oral mucosa - Neck Neck: Present: supple, normal ROM - Respiratory Respiratory effort: normal Respiratory: bilateral: CTA - Cardiovascular Heart Sounds: Present: S1 & S2. Absent: rub, click - Extremities Extremities: pulses symmetrical, No edema Peripheral Pulses: within normal limits - Abdominal General gastrointestinal: Present: soft, non-tender, non-distended, normal bowel sounds Male genitourinary: Present: normal - Integumentary Integumentary: Present: clear, warm, dry - Musculoskeletal Musculoskeletal: gait normal, strength equal bilaterally - Psychiatric Psychiatric: appropriate mood/affect, intact judgment & insight - Neurologic Neurologic: CNII-XII intact, moves all extremities Plan Activity: advance as tolerated Weight Bearing Status: Weight Bear as Tolerated Diet: regular Follow up with: YRN BUCKNER MD [Primary Care Provider] - 3-5 Days Prescriptions: Ciprofloxacin HCl [Ciprofloxacin TAB] 250 mg PO BID #10 tab-cap
[2021-12-15] MEDS: FAMOTIDINE 20 MG TAB PO SCH (09:28)
[2021-12-15] MEDS: HALOPERIDOL 2 MG TAB PO SCH (09:29)
[2021-12-15] MEDS: HEPARIN 5,000 UNIT/1 ML VIAL SUB-Q SCH (09:29)
--- NOTE | 2021-12-15 10:01 | Progress Note ---
Assessment and Plan - Patient Problems (1) KELLEY (acute kidney injury) Current Visit: Yes Status: Acute Plan to address problem: Renal function has shown continued improvement at this time. Will continue to monitor closely. From nephrology standpoint patient is stable for discharge. (2) Abdominal pain Current Visit: Yes Status: Acute Qualifiers: Abdominal location: generalized Qualified Code(s): R10.84 - Generalized abdominal pain Plan to address problem: Resolved at this time. Continue to monitor. (3) Acute urinary tract infection Current Visit: Yes Status: Acute Plan to address problem: Continue current antibiotic regimen. (4) Calculus of right kidney Current Visit: Yes Status: Acute Plan to address problem: Non obstructive kidney stone with no indications of obstruction or consequent hydronephrosis. (5) Hypercalcemia Current Visit: Yes Status: Acute Plan to address problem: serum calcium showing improvement with appropriate hydration. Subjective Date of service: 12/15/21 Principal diagnosis: N/V Interval history: No acute issues this am. Objective - Vital Signs Vital signs: Vital Signs - 12hr 12/14/21 12/15/21 12/15/21 22:28 00:16 04:39 Temperature 98.1 F 98.2 F Pulse Rate 63 101 H Respiratory 18 18 Rate Blood Pressure 138/82 140/88 Blood Pressure [Right] O2 Sat by Pulse 99 98 96 Oximetry 12/15/21 12/15/21 09:26 09:52 Temperature 98.1 F Pulse Rate 75 Respiratory 18 Rate Blood Pressure Blood Pressure 117/82 [Right] O2 Sat by Pulse 98 Oximetry - General Appearance General appearance: well-developed, appears stated age EENT: ATNC Neck: no JVD Respiratory: Present: Clear to Ascultation Cardiology: regular Gastrointestinal: normal Integumentary: no rash, warm and dry Neurologic: no focal deficit, alert and oriented x3 Musculoskeletal: deferred Psychiatric: cooperative - Lab 12/14/21 11:22 12/14/21 11:22 Most recent lab results Calcium 10.1 mg/dL (8.4-10.2) 12/14/21 11:22 Urine Creatinine 185.9 mg/dL (0.1-20.0) H 12/12/21 13:30 Urine Sodium 61 mmol/L 12/12/21 13:30 Urine Total Protein 23 mg/dL (5-11.8) H 12/12/21 13:30 - Allied health notes Allied health notes reviewed: nursing Medications & Allergies - Medications Allergies/Adverse Reactions: Allergies No Known Allergies Allergy (Verified 01/12/18 23:36) Home Medications: Home Medications Medication Instructions Recorded Confirmed Last Taken Type Dicyclomine [Bentyl] 10 mg PO QID PRN #15 capsule 01/13/18 12/12/21 Unknown Rx Ciprofloxacin HCl [Ciprofloxacin 250 mg PO BID #10 tab-cap 12/15/21 Unknown Rx TAB] Active Medications: Generic Name Dose Route Start Last Admin Trade Name Freq PRN Reason Stop Dose Admin Acetaminophen 650 mg 12/12/21 05:26 Acetaminophen 325 Mg Tab PO Q4H PRN Pain MILD(1-3)/Fever >100.5/QUIROS Hydrocodone Bitart/Acetaminophen 1 each 12/12/21 13:07 Hydrocodone/Acetaminophen 5-325 Mg Tab PO Q4H PRN Pain, Moderate (4-6) Albuterol 2.5 mg 12/12/21 05:26 Albuterol 2.5 Mg/3 Ml Nebu IH Q3HRT PRN Shortness Of Breath Alprazolam 0.25 mg 12/12/21 13:08 12/12/21 20:21 Alprazolam 0.25 Mg Tab PO 0.25 mg Q8H PRN Administration Anxiety Dicyclomine HCl 10 mg 12/12/21 14:00 12/15/21 02:28 Dicyclomine 10 Mg Cap PO 10 mg QID PRN Administration ABD cramping Famotidine 20 mg 12/13/21 08:30 12/15/21 09:28 Famotidine 20 Mg Tab PO 20 mg 08,1999 ASHLEY Administration Haloperidol 2 mg 12/13/21 11:00 12/15/21 09:29 Haloperidol 2 Mg Tab PO 2 mg BID ASHLEY Administration Heparin Sodium (Porcine) 5,000 unit 12/12/21 10:00 12/15/21 09:29 Heparin 5,000 Unit/1 Ml Vial SUB-Q Not Given Q12HR ASHLEY Hydromorphone HCl 0.5 mg 12/12/21 05:26 12/13/21 11:18 Hydromorphone 1 Mg/1 Ml Inj IV 0.5 mg Q3H PRN Administration Pain , Severe (7-10) Dextrose/Sodium Chloride 1,000 mls @ 150 mls/hr 12/12/21 06:00 12/15/21 02:26 D5/0.45ns IV 150 mls/hr DIRECT ASHLEY Administration Ceftriaxone Sodium 2 gm in 100 mls @ 200 mls/hr 12/12/21 22:00 12/14/21 21:57 Rocephin/Ns 2 Gm/100 Ml IV 12/18/21 23:59 200 mls/hr Q24H ASHLEY Administration Protocol Metoclopramide HCl 5 mg 12/13/21 11:00 12/15/21 05:31 Metoclopramide 10 Mg/2 Ml Inj IV 5 mg Q6HR ASHLEY Administration Ondansetron HCl 4 mg 12/12/21 17:19 12/13/21 23:27 Ondansetron 4 Mg/2 Ml Inj IV 4 mg Q4H PRN Administration Nausea And Vomiting Sodium Chloride 10 ml 12/12/21 10:00 12/15/21 09:29 Sodium Chloride 0.9% 10 Ml Flush Syringe IV 10 ml BID ASHLEY Administration Sodium Chloride 10 ml 12/12/21 05:26 Sodium Chloride 0.9% 10 Ml Flush Syringe IV PRN PRN LINE FLUSH
[2021-12-15 11:56] VITALS: BP 121/76
== END 2021-12-15 12:05 | disposition home or self-care (01) | DRG 689 ==
LOC: ED 20:02 → 3A 12-12 06:53
PROVIDERS: ADMIT Hospitalist; ATTEND Hospitalist
DX: N39.0 Urinary tract infection, site not specified (principal); N17.0 Acute kidney failure with tubular necrosis; E87.1 Hypo-osmolality and hyponatremia; A09 Infectious gastroenteritis and colitis, unspecified; E86.0 Dehydration; E83.52 Hypercalcemia; E86.1 Hypovolemia; Z20.822 Contact with and (suspected) exposure to COVID-19; Z82.49 Family history of ischemic heart disease and other diseases of the circulatory system
CPT/HCPCS: 36415; 74176; 80053; 81001; 82570; 83690; 84156; 84300; 85007; 85025; 85027; 85379; 87086; 93005; 94640; 96365; 96366; 96368; 96375; 99285; G0378; J3490; J7070; J0696; J1170; J1200; J1644; J2270; J2405; J2765; J7030; J7120; U0003

== ENCOUNTER 2022-04-23 00:17 | Emergency (ER) | payer OTHER ==
[2022-04-23] MEDS ORDERED: ONDANSETRON 4 MG/2 ML INJ IV ONE (08:47)
[2022-04-23] MEDS ORDERED: DICYCLOMINE 20 MG TAB PO ONE (08:48)
[2022-04-23] MEDS ORDERED: SODIUM CHLORIDE 0.9% 1000 ML 1,000 ML IV ONE ×2 (08:48→11:44)
[2022-04-23 10:18] LABS: Color,Urine Yellow (Yellow)
[2022-04-23 10:28] LABS: Bacteria,Urine 1+ /HPF (Negative); Hyaline Casts,Urine 51 /LPF; Mucus,Urine FEW /HPF
--- NOTE | 2022-04-23 10:33 | Emergency Department Report ---
ED General Adult HPI - General Chief complaint: Nausea/Vomiting/Diarrhea Stated complaint: VOMITING Source: patient Mode of arrival: Ambulatory Limitations: No Limitations - History of Present Illness Initial comments: 32-year-old male present to Ed with complain of nausea/vomiting x 4 days.Patient state he is unable to eat or drink.Patient state that he had similar episodes in the past. Patient states that his mom told him to come to ED and recheck for diabetes mellitus. He denies any dysuria , abdominal pain, fever or chills. Patient is alert and oriented x3. No acute distress noted. No ill appearance noted. - Related Data Previous Rx's Medication Instructions Recorded Last Taken Type Dicyclomine [Bentyl] 10 mg PO QID PRN #15 capsule 01/13/18 Unknown Rx Ciprofloxacin HCl [Ciprofloxacin 250 mg PO BID #10 tab-cap 12/15/21 Unknown Rx TAB] Dicyclomine [Bentyl] 20 mg PO QID 5 Days #20 tablet 04/23/22 Unknown Rx Ondansetron (Nf) [Zofran TAB] 8 mg PO Q8HR PRN 3 Days #12 tablet 04/23/22 Unknown Rx Allergies Allergy/AdvReac Type Severity Reaction Status Date / Time No Known Allergies Allergy Verified 01/12/18 23:36 ED Review of Systems ROS: Stated complaint: VOMITING Other details as noted in HPI Constitutional: denies: chills, fever Eyes: denies: eye pain, eye discharge, vision change ENT: denies: ear pain, throat pain Respiratory: denies: cough, shortness of breath, wheezing Cardiovascular: denies: chest pain, palpitations Endocrine: no symptoms reported Gastrointestinal: nausea, vomiting. denies: abdominal pain, diarrhea Genitourinary: dysuria. denies: urgency Musculoskeletal: denies: back pain, joint swelling, arthralgia Skin: denies: rash, lesions Neurological: denies: headache, weakness, paresthesias Psychiatric: denies: anxiety, depression Hematological/Lymphatic: denies: easy bleeding, easy bruising ED Past Medical Hx - Past Medical History Previous Medical History?: Yes Hx Renal Disease: Yes - Surgical History Past Surgical History?: Yes Additional Surgical History: tonsilectomy - Social History Smoking Status: Unknown if ever smoked Substance Use Type: None - Medications Home Medications: Home Medications Medication Instructions Recorded Confirmed Last Taken Type Dicyclomine [Bentyl] 10 mg PO QID PRN #15 capsule 01/13/18 12/12/21 Unknown Rx Ciprofloxacin HCl [Ciprofloxacin 250 mg PO BID #10 tab-cap 12/15/21 Unknown Rx TAB] Dicyclomine [Bentyl] 20 mg PO QID 5 Days #20 tablet 04/23/22 Unknown Rx Ondansetron (Nf) [Zofran TAB] 8 mg PO Q8HR PRN 3 Days #12 tablet 04/23/22 Unknown Rx ED Physical Exam - General Limitations: No Limitations ED Course Vital Signs 04/23/22 00:30 Temperature 98.6 F Pulse Rate 54 L Respiratory 18 Rate Blood Pressure 124/87 O2 Sat by Pulse 98 Oximetry ED Medical Decision Making - Lab Data Result diagrams: 04/23/22 09:44 04/23/22 14:00 - Medical Decision Making 32-year-old male present to Ed with complain of nausea/vomiting x 4 days.Patient state he is unable to eat or drink.Patient state that he had similar episodes in the past. Patient states that his mom told him to come to ED and recheck for diabetes mellitus. He denies any dysuria , abdominal pain, fever or chills. Patient is alert and oriented x3. No acute distress noted. No ill appearance noted. Physical examination is unremarkable. Patient BUN and creatinine slightly elevated responded to 2 L of normal saline. Patient has a previous history of KELLEY. Patient informed of the lab results that he had been going to [facility] and was aware of his kidney function. He states that he has an appointment to follow-up with [facility] for nephrology and GI. Rechecked the patient is resting quietly , comfortable and feeling better. I discussed the results of diagnostic study, my clinical impression and the plan for further treatment with the patient. Patient agrees with plan and discharge at this present time. All question addressed. I have given the patient instruction regarding a diagnosis ,expectation ,follow- up and return precaution. I explained to the patient that emergent condition may arise and to return to the ED for new worsen and any new persisting condition. I have explained the importance of following up with the primary care physician or referral physician listed below has instructed. The patient verbalized understanding of discharge instruction. Abnormal Lab Results 04/23/22 04/23/22 04/23/22 08:57 09:44 09:44 WBC 15.6 H RBC 6.03 H Hgb 18.0 H Hct 54.5 H MCV 90 MCH 30 MCHC 33 RDW 13.1 L Plt Count 172 Sodium 139 Potassium 4.4 Chloride 96.4 L Carbon Dioxide 24 Anion Gap 23 BUN 112 H Creatinine 2.6 H Estimated GFR 35 BUN/Creatinine Ratio 43 Glucose 139 H Calcium 9.7 Total Bilirubin 1.60 H AST 19 ALT 18 Alkaline Phosphatase 74 Total Protein 8.4 H Albumin 5.1 H Albumin/Globulin Ratio 1.5 Lipase 30 Urine Color Yellow Urine Turbidity Clear Specific [place] (Man) 1.024 Ur Protein (Man) 1+ Ur Ketones (Man) Negative Ur Nitrite (Man) Negative Urine Bilirubin (Man) Negative Urine Ictotest Not Reportable Leukocyte Esterase (Man) Negative Urine WBC (Auto) 3.0 Urine RBC (Auto) 1.0 U Epithel Cells (Auto) < 1.0 Urine Bacteria (Auto) 1+ Urine RBC (Manual) Negative Hyaline Casts 51 Urine Mucus Few 04/23/22 14:00 WBC RBC Hgb Hct MCV MCH MCHC RDW Plt Count Sodium 141 Potassium 5.3 H D Chloride 103.2 Carbon Dioxide 23 Anion Gap 20 BUN 94 H Creatinine 2.0 H Estimated GFR 48 BUN/Creatinine Ratio 47 Glucose 128 H Calcium 9.2 Total Bilirubin 1.60 H AST 18 ALT 15 Alkaline Phosphatase 65 Total Protein 7.5 Albumin 4.5 Albumin/Globulin Ratio 1.5 Lipase Urine Color Urine Turbidity Specific [place] (Man) Ur Protein (Man) Ur Ketones (Man) Ur Nitrite (Man) Urine Bilirubin (Man) Urine Ictotest Leukocyte Esterase (Man) Urine WBC (Auto) Urine RBC (Auto) U Epithel Cells (Auto) Urine Bacteria (Auto) Urine RBC (Manual) Hyaline Casts Urine Mucus Critical care attestation.: If time is entered above; I have spent that time in minutes in the direct care of this critically ill patient, excluding procedure time. ED Disposition Clinical Impression: Dehydration Nausea and vomiting Qualifiers: Vomiting type: unspecified Qualified Code(s): R11.2 - Nausea with vomiting, unspecified Disposition: 01 HOME / SELF CARE / HOMELESS Is pt being admited?: No Does the pt Need Aspirin: No Condition: Stable Instructions: Dehydration, Adult, [id number] Additional Instructions: Take medication as prescribed Keep follow-up appointment appointment with [facility] Prescriptions: Dicyclomine [Bentyl] 20 mg PO QID 5 Days #20 tablet Ondansetron (Nf) [Zofran TAB] 8 mg PO Q8HR PRN 3 Days #12 tablet PRN Reason: Nausea And Vomiting Referrals: PRIMARY CARE, [Primary Care Provider] - 3-5 Days [facility] [Provider Group] - 3-5 Days [facility] [Provider Group] - 3-5 Days [facility] [Outside] - 3-5 Days Forms: Work/School Release Form(ED) Time of Disposition: 15:05
[2022-04-23 11:19] LABS: Albumin 5.1 g/dL (3.9-5); Calcium 9.7 mg/dL (8.4-10.2)
[2022-04-23 11:24] LABS: Hematocrit 54.5 % (35.5-45.6); Mean Corpuscular HGB Conc 33 % (32-34); Mean Corpuscular Volume 90 fl (84-94); Platelet Count 172 K/mm3 (140-440); Red Blood Count 6.03 M/mm3 (3.65-5.03); Red Cell Distribution Width 13.1 % (13.2-15.2)
[2022-04-23 14:50] LABS: Albumin 4.5 g/dL (3.9-5); Calcium 9.2 mg/dL (8.4-10.2)
[2022-04-23 15:25] VITALS: BP 136/73
== END 2022-04-23 15:24 | disposition home or self-care (01) ==
LOC: ED 00:17
DX: E86.0 Dehydration (principal); R11.2 Nausea with vomiting, unspecified; Z90.89 Acquired absence of other organs; Z98.890 Other specified postprocedural states; Z79.899 Other long term (current) drug therapy
CPT/HCPCS: 36415; 80053; 81001; 83690; 85027; 96361; 96374; 99283; J2405; J7030